=== PATIENT | male | born 1955 | race American Indian/Alaskan Native ===

== ENCOUNTER 2016-05-12 20:41 | Inpatient (IN) | payer MEDICAID ==
[2016-05-12] MEDS ORDERED: PROVENTIL IH ONE ×2 (20:57→21:22)
[2016-05-12 22:21] LABS: Basophils % (Auto) 1.1 % (0.0-1.8); Eosinophils % (Auto) 0.2 % (0.0-4.3); Hematocrit 35.2 % (35.5-45.6); Hemoglobin 11.1 gm/dl (11.8-15.2); Mean Corpuscular HGB Conc 32 % (32-34); Mean Corpuscular Volume 80 fl (84-94); Platelet Count 108 K/mm3 (140-440); Red Blood Count 4.41 M/mm3 (3.65-5.03); White Blood Count 5.3 K/mm3 (4.5-11.0)
[2016-05-12 22:22] LABS: INR 1.22 (0.87-1.13)
[2016-05-12 22:23] LABS: Mean Corpuscular Hemoglobin 25 pg (28-32); Partial Thromboplastin Time 23.9 Sec. (24.2-36.6); Red Cell Distribution Width 22.2 % (13.2-15.2)
[2016-05-12 22:48] LABS: Anion Gap 16 mmol/L; BUN/Creatinine Ratio 18.57; Blood Urea Nitrogen 13 mg/dL (9-20); Carbon Dioxide 25 mmol/L (22-30); Chloride 101.1 mmol/L (98-107); Glucose 137 mg/dL (75-100); Potassium 3.6 mmol/L (3.6-5.0); Sodium 138 mmol/L (137-145)
[2016-05-13] MEDS ORDERED: NITRO-BID 2% TP ONE (01:07)
[2016-05-13] MEDS ORDERED: TORADOL IV ONE (01:09)
--- NOTE | 2016-05-13 01:10 | Emergency Department Report ---
ED Chest Pain HPI - General Chief Complaint: Chest Pain Stated Complaint: CHEST PAIN Time Seen by Provider: 05/13/16 00:56 Source: patient, EMS Mode of arrival: Ambulatory Limitations: No Limitations - History of Present Illness Initial Comments: This is a 60-year-old gentleman with a one-day history of left-sided chest pain. He describes it as sharp in nature. He describes it being persistent. He States it keeps him up at night as well. Patient does report as well having cough over the last 2 days. He states that he has not had fevers he is not bringing up anything with a cough either. He does use albuterol treatments at home routinely. He reports that only helped modestly with his cough. Patient reports having CHF but I think he is confused and has CAD. He did have angiography done several years ago demonstrating 2 lesions that he reports were reviewed removed but did not require stenting. He denies any change of his pain with exertion. Somewhat worse however with cough. Denies any shortness of breath associated with this specifically. Patient is in [place] due to depression. He states that he is feeling that he is making progress there. He is frustrated that he is feeling sick now though. Patient was given aspirin by EMS. -: Gradual Severity scale (0 -10): 10 - Related Data Allergies Allergy/AdvReac Type Severity Reaction Status Date / Time No Known Allergies Allergy Verified 05/12/16 21:21 JUNG score - Jung Score Age > 65: (0) No Aspirin use within the Past 7 Days: (0) No 3 or more CAD Risk Factors: (0) No 2 or more Angina events in past 24 hrs: (1) Yes Known CAD with more than 50% Stenosis: (0) No Elevated Cardiac Markers: (0) No ST Deviation Greater than 0.5mm: (0) No JUNG Score: 1 ED Review of Systems ROS: Stated complaint: CHEST PAIN Other details as noted in HPI Comment: All other systems reviewed and negative Constitutional: denies: chills, fever Eyes: denies: eye pain, eye discharge, vision change ENT: denies: ear pain, throat pain Respiratory: cough. denies: shortness of breath, wheezing Cardiovascular: as per HPI, chest pain. denies: palpitations Endocrine: no symptoms reported Gastrointestinal: denies: abdominal pain, nausea, diarrhea Genitourinary: denies: urgency, dysuria Musculoskeletal: denies: back pain, joint swelling, arthralgia Skin: denies: rash, lesions Neurological: denies: headache, weakness, paresthesias Psychiatric: depression. denies: anxiety Hematological/Lymphatic: denies: easy bleeding, easy bruising ED Past Medical Hx - Past Medical History Previous Medical History?: Yes Additional medical history: CHF, COPD, ASTHMA, - Surgical History Past Surgical History?: Yes Additional Surgical History: Bilateral Hip Replacement - Social History Smoking Status: Never Smoker Substance Use Type: Alcohol ED Physical Exam - General Limitations: No Limitations General appearance: alert, in no apparent distress - Head Head exam: Present: atraumatic, normocephalic - Eye Eye exam: Present: normal appearance, EOMI. Absent: scleral icterus - ENT ENT exam: Present: normal exam, normal orophraynx, mucous membranes moist - Neck Neck exam: Present: normal inspection. Absent: tenderness, lymphadenopathy - Respiratory Respiratory exam: Present: wheezes (end expiratory.), decreased breath sounds. Absent: respiratory distress - Cardiovascular Cardiovascular Exam: Present: regular rate, normal rhythm. Absent: systolic murmur, diastolic murmur, rubs, gallop - GI/Abdominal GI/Abdominal exam: Present: soft, normal bowel sounds. Absent: tenderness, guarding - Rectal Rectal exam: Present: deferred - Extremities Exam Extremities exam: Present: normal inspection, other (equal distal pedal pulses bilat). Absent: pedal edema, calf tenderness - Back Exam Back exam: Present: normal inspection. Absent: tenderness, CVA tenderness (L) - Neurological Exam Neurological exam: Present: alert, oriented X3 - Psychiatric Psychiatric exam: Present: normal affect, normal mood - Skin Skin exam: Present: warm, dry, intact, normal color. Absent: rash ED Course Vital Signs 05/12/16 05/12/16 05/13/16 20:45 23:31 00:03 Temperature 97.6 F Pulse Rate 77 61 Respiratory 20 18 16 Rate Blood Pressure 139/97 135/88 [Right] O2 Sat by Pulse 98 99 99 Oximetry - Reevaluation(s) Reevaluation #1: 05/13/16 00:59 ECG at 2045 with normal sinus rhythm at 76 bpm with normal RI and QRS. Normal axis is noted. There is nonspecific ST changes noted in the anterior leads. No reciprocal is noted no old to compare to. Reevaluation #2: 05/13/16 01:15 Patient was initially sleeping when I enter the room. She was easily arousable. He stated his pain was 10 out of 10. I do have a hard time finding given his fitful sleep he appeared to be having. There is in my mind some concern/question for secondary gain with him coming from [place]. However he does give a history of prior coronary artery disease. He states that his pain today feels similar. He reports that he did have lesions that were identified on angiography last time he had similar pains. I feel inclined to proceed down the next same pathway again this time. His enzymes are negative. ECG is nonspecific. I do not suspect an acute process at this time but feel he would benefit from rule out as well. Secondarily there is more likely diagnosis in my mind that this is more likely chest wall pain due to his persistent coughing. Patient appears to have a bronchitis by examination. He has used albuterol at home as well as here with some mild subjective improvement. His oxygen levels are stable at this time. I did speak with the hospitalist Dr. Adames for admission. He was agreeable with this. No other concerning features are noted at this time. ED Medical Decision Making - Lab Data Result diagrams: 05/12/16 21:47 05/12/16 21:47 - Radiology Data interpreted by me: Normal cardiac silhouette. No infiltrate noted. Mild bronchial fullness noted bilaterally. Critical care attestation.: If time is entered above; I have spent that time in minutes in the direct care of this critically ill patient, excluding procedure time. ED Disposition Clinical Impression: Bronchitis Chest pain Qualifiers: Chest pain type: precordial chest pain Qualified Code(s): R07.2 - Precordial pain Depression Qualifiers: Depression Type: major depressive disorder Major depression recurrence: recurrent Active/Remission status: currently active Major depression episode severity: unspecified Qualified Code(s): F33.9 - Major depressive disorder, recurrent, unspecified Disposition: OP ADMITTED IP TO THIS HOSP Is pt being admited?: Yes Does the pt Need Aspirin: No Condition: Stable Instructions: Chest Pain (ED), Chronic Bronchitis (ED) Referrals: PRIMARY CARE, [Primary Care Provider] - 3-5 Days Time of Disposition: 01:11
[2016-05-13] MEDS ORDERED: TYLENOL PO PRN (01:57)
[2016-05-13] MEDS ORDERED: NITROSTAT SL PRN (01:57)
[2016-05-13] MEDS: NITRO-BID 2% TP SCH ×5 (02:48→17:58)
--- NOTE | 2016-05-13 02:49 | Admit Criteria Form ---
Admission Criteria Documentation: CHEST PAIN Clinical Indications for Admission to Inpatient Care (Place 'X' for any and all applicable criteria): Admission is indicated for chest pain and ANY ONE of the following(1)(2)(3)(4)(5 ): [ ]I. Angina with acute coronary syndrome (Also use Myocardial Infarction or Angina guideline) [ ]II. Hemodynamic instability [ ]III. Angina needing acute intervention as indicated by ALL of the following( 11)(12): [ ]a) Unstable angina is present as indicated by angina that is ANY ONE of the following: [ ]i) New onset [ ]ii) Nocturnal [ ]iii) Prolonged at rest [ ]iv) Progressive [ ]b) Angina warrants acute intervention as indicated by ANY ONE of the following: [ ]i) Recurrent angina (e.g, not responding as previously to treatment) [ ]ii) Angina at rest or with low-level activities despite initial medical therapy [ ]iii) New or presumably new ST-segment depression on ECG [ ]iv) Signs or symptoms of heart failure (eg, dyspnea, pulmonary edema) [ ]v) New or worsening mitral regurgitation [ ]vi) Hemodynamic instability [ ]vii) Dangerous arrhythmia (eg, sustained ventricular tachycardia) [ ]viii) History of percutaneous coronary intervention within 6 months [ ]ix) History of coronary artery bypass graft surgery [ ]x) JUNG risk score of 2 or greater[A] [ ]xi) History of Diabetes(14) [ ]xii) High-risk cardiac ischemia findings on noninvasive testing (e.g, echocardiogram, treadmill testing, nuclear scan) [ ]xiii) Chronic renal insufficiency (ie, estimated GFR less than 60 mL/min/1.732m) [ ]xiv) Left ventricular ejection fraction less than 40% [ ]IV. Evidence of ID (eg, cardiac biomarkers positive, ST-segment elevation on ECG) also use Myocardial Infarction Criteria Form. [ ]V. Pulmonary edema [ ]. Respiratory distress [ ]VII. Chest pain indicative of serious diagnosis other than coronary artery disease (eg, aortic dissection) [ ]VIII. Contraindications and/or Inappropriate clinical situations for Observational Care in patients with Chest Pain, when ANY ONE of the following is required: [ ]a) Patient with risk factor for pulmonary embolism, acute coronary syndrome and myocardial infarction (18) [ ]b) Patient with Pulmonary embolism require an average LOS of 4.3 days, therefore emergency department observation management is inappropriate 18,23 [ ]c) Painful condition/s in the elderly, have the highest rate of recidivism after emergency department observation management (10.8%) 20,21,22 [ ]d) Elevated cardiac biomarker requires intensive and exhaustive care (19) [ x]IX. General contraindications and/or Inappropriate clinical situations for Observational Care in patients with Chest Pain, when ANY ONE of the following is required: [x ]a) Prediction of prolongation of LOS based on ANY ONE of the following may be considered as a contraindication for observational care 2, 3, 4, 5, 6, 7, 8, 9, 10, 11 [ ]i) Age > 65 yrs. [ ]ii) Patient arriving by ambulance [ ]iii) Patient with high acuity [ ]iv) Patient requiring vital sign monitoring [x ]v) Patient on IV medication [ ]b) Systolic blood pressures 180mmHg 3,12 [ ]c) Patient with altered mental status including delirium and other alteration of consciousness, (3) [ ]d) Patient whose discharge disposition will be to a detention home or rehabilitation home should not be managed in Emergency Department Observation Unit. CMS rule requires 3 days hospital stay before such placement. 3,13 [ ]e) Patient with failure to thrive due to broad array of etiologies 3,16,17 [ ]f) Inability to ambulate 3,14 Extended stay beyond goal length of stay may be needed for (1)(28): [ ]a) Specific condition diagnosed after evaluation (eg, pulmonary embolism, aortic dissection) [ ]b) Unstable angina [ ]c) Continued suspicion of acute coronary syndrome with inability to complete needed cardiac evaluation (eg, patient clinically unable to undergo stress testing) [ ]d) Myocardial infarction (Contents from ANGINA and CHEST PAIN clinical indications for admission to inpatient care have been integrated in this form) The original [employer] content created by [employer] has been revised. The portions of the content which have been revised are identified through the use of italic text or in bold, and [facility] [employer] has neither reviewed nor approved the modified material. All other unmodified content is copyright [facility]. Please see references footnoted in the original [facility] edition 2016 Admission Criteria Met: Yes
[2016-05-13] MEDS: HEPARIN SUB-Q SCH ×3 (02:53→22:49)
--- NOTE | 2016-05-13 03:47 | History and Physical Report ---
CHIEF COMPLAINT: Chest pain. HISTORY OF PRESENT ILLNESS: The patient is a 60-year-old male brought from [facility] after he presented with left-sided chest pain, which he described as sharp in consistency, radiating to the neck, left upper arm. There was a history of associated shortness of breath, diaphoresis, nausea, but no vomiting. Also, the patient complained about cough. The patient denied history of fever or chills. PAST MEDICAL HISTORY: Pertinent for coronary artery disease, depression, COPD, as well as asthma. PAST SURGICAL HISTORY: Pertinent for bilateral hip replacement. FAMILY HISTORY: Noncontributory. SOCIAL HISTORY: The patient lives at the [facility]. He does not smoke. He drinks alcohol occasionally. He does not use illicit drugs. MEDICATIONS: The patient's medications are not known at this time. ALLERGIES: There are no known drug allergies. REVIEW OF SYSTEMS: CONSTITUTIONAL: There are no fever, no chills. Diaphoresis present. HEENT: Negative for headache or sore throat. CARDIOVASCULAR SYSTEM: There is chest pain, but no orthopnea. RESPIRATORY SYSTEM: There is shortness of breath or cough. GASTROINTESTINAL SYSTEM: He has nausea, but no vomiting, no abdominal pain, diarrhea or constipation. NEUROLOGICAL SYSTEM: There is no numbness, no dizziness. No altered mental status. MUSCULOSKELETAL SYSTEM: There is no joint pain or swelling. DERMATOLOGICAL SYSTEM: There is no skin rash or itching. GENITOURINARY SYSTEM: There is no dysuria, hematuria or flank pain. Rest of system review is normal. PHYSICAL EXAMINATION: GENERAL: At the time of exam, the patient was found to be alert, oriented x 3, and not in acute distress. VITAL SIGNS: Shows temperature of 97.6 degrees Fahrenheit, pulse of 68, respiration 16, blood pressure 135/88, O2 sat of 98% of oxygen. HEENT: Shows pupils to be equal, round, and reactive to light and accommodation. Extraocular muscles are intact. NECK: Supple with no JVD or carotid bruit. CARDIOVASCULAR SYSTEM: Showed normal first and second heart sounds with no gallops or rubs. RESPIRATORY SYSTEM: Show good air entry on both sides of the lungs with no abnormal breath sounds. GASTROINTESTINAL SYSTEM: Show abdomen to be full, soft, nontender with no organomegaly or rigidity. NEUROLOGIC EXAMINATION: Show no focal deficit. MUSCULOSKELETAL SYSTEM: Show no joint swelling or tenderness. DERMATOLOGICAL system: Show no skin rash. GENITOURINARY SYSTEM: Showing no costovertebral angle tenderness. PERTINENT LABORATORY AND IMAGING STUDIES: The patient has CBC done with low hemoglobin of 11.1, low hematocrit of 35.2, and low MCV of 8, platelet count is also low with a value of 108. The patient's coagulation study shows elevated PT of 15.3 with slightly elevated INR of 1.22. The patient's chemistry was unremarkable. IMAGING STUDIES: The patient had a chest x-ray done with no report from the Emergency Room about any abnormality on x-ray. DIAGNOSIS: Chest pain. PLAN: The patient will be placed on chest pain pathway on telemetry. We will have cardiac enzymes, troponin, total CK, and CK-MB checked q 6 hours x 2 more levels. The patient will be n.p.o. for Lexiscan stress test in the morning and will be on nitro paste 1 inch to anterior chest wall q 6 hours. The patient will also be on IV morphine 2 mg every 3 hours as needed for pain and IV Zofran 4 mg every 6 hours for nausea and vomiting. The patient will be placed on Tylenol 650 mg by mouth every 4 hours for headache and fever, and will be on aspirin 325 mg by mouth daily. The patient will be on oxygen by nasal cannula at 2 liter per minute and would also be placed on sublingual nitroglycerin for breakthrough chest pain. Further management of patient's presentation will be dependent on the result of the stress test. JOB# [id number] OCN/NTS
--- NOTE | 2016-05-13 08:00 | XRay Report ---
PA and lateral chest: SOB. This is mild dextroscoliosis of the upper thoracic spine. There is mild tortuosity of the aortic arch. The heart is normal in size. The lungs are clear. No bone abnormalities. No prior study for comparison. Impression: No acute findings.
[2016-05-13] MEDS ORDERED: LEXISCAN IV ONE (09:47)
[2016-05-13] MEDS ORDERED: PROVENTIL IH ONE (10:18)
[2016-05-13] MEDS: ASPIRIN PO SCH (11:45)
[2016-05-13] MEDS: MORPHINE IV PRN ×2 (11:46→20:25)
[2016-05-13] MEDS: ZOFRAN IV PRN ×2 (11:59→20:26)
[2016-05-13 12:33] LABS: Creatine Kinase MB 2.1 ng/mL (0.0-4.0)
[2016-05-13 12:37] LABS: Creatine Kinase 67 units/L (55-170)
--- NOTE | 2016-05-13 14:36 | Progress Note ---
Assessment and Plan Assessment and plan: 1. Acute COPD exacerbation. Patient will be placed on the COPD pathway. We will start breathing treatments/nebulizer and IV steroids. Patient will also be started on IV antibiotics. 2. Acute bronchitis. As above. 3. Chest pain. Patient will undergo stress thallium when more stable. Etiology likely secondary to #2. 4. Coronary artery disease. Stable. History Interval history: 60-year-old male who presented through the emerge department with complaints of reproducible chest pain and cough. Patient unable to undergo stress thallium evaluation secondary to wheezing. Hospitalist Physical - Constitutional Vitals: Temp Pulse Resp BP Pulse Ox 98.1 F 66 18 124/81 97 05/13/16 08:00 05/13/16 08:00 05/13/16 08:00 05/13/16 08:00 05/13/16 08:38 General appearance: Present: no acute distress, well-nourished - EENT Eyes: Present: PERRL, EOM intact ENT: hearing intact, clear oral mucosa, dentition normal - Neck Neck: Present: supple, normal ROM - Respiratory Respiratory effort: normal Respiratory: bilateral: diminished, rhonchi, wheezing - Cardiovascular Rhythm: regular Heart Sounds: Present: S1 & S2. Absent: gallop, rub - Extremities Extremities: no ischemia, No edema, Full ROM - Abdominal General gastrointestinal: soft, non-tender, non-distended, normal bowel sounds - Integumentary Integumentary: Present: clear, warm, dry - Neurologic Neurologic: CNII-XII intact, moves all extremities Results - Labs CBC & Chem 7: 05/12/16 21:47 05/12/16 21:47 Labs: Laboratory Last Values WBC 5.3 K/mm3 (4.5-11.0) 05/12/16 21:47 RBC 4.41 M/mm3 (3.65-5.03) 05/12/16 21:47 Hgb 11.1 gm/dl (11.8-15.2) L 05/12/16 21:47 Hct 35.2 % (35.5-45.6) L 05/12/16 21:47 MCV 80 fl (84-94) L 05/12/16 21:47 MCH 25 pg (28-32) L 05/12/16 21:47 MCHC 32 % (32-34) 05/12/16 21:47 RDW 22.2 % (13.2-15.2) H 05/12/16 21:47 Plt Count 108 K/mm3 (140-440) L 05/12/16 21:47 Lymph % (Auto) 16.4 % (13.4-35.0) 05/12/16 21:47 [place] % (Auto) 10.1 % (0.0-7.3) H 05/12/16 21:47 Eos % (Auto) 0.2 % (0.0-4.3) 05/12/16 21:47 Baso % (Auto) 1.1 % (0.0-1.8) 05/12/16 21:47 Lymph # 0.9 K/mm3 (1.2-5.4) L 05/12/16 21:47 [place] # 0.5 K/mm3 (0.0-0.8) 05/12/16 21:47 Eos # 0.0 K/mm3 (0.0-0.4) 05/12/16 21:47 Baso # 0.1 K/mm3 (0.0-0.1) 05/12/16 21:47 Seg Neutrophils % 72.2 % (40.0-70.0) H 05/12/16 21:47 Seg Neutrophils # 3.8 K/mm3 (1.8-7.7) 05/12/16 21:47 PT 15.3 Sec. (12.2-14.9) H 05/12/16 21:47 INR 1.22 (0.87-1.13) H 05/12/16 21:47 APTT 23.9 Sec. (24.2-36.6) L 05/12/16 21:47 VBG pH 7.383 (7.320-7.420) 05/12/16 21:47 Sodium 138 mmol/L (137-145) 05/12/16 21:47 Potassium 3.6 mmol/L (3.6-5.0) 05/12/16 21:47 Chloride 101.1 mmol/L (98-107) 05/12/16 21:47 Carbon Dioxide 25 mmol/L (22-30) 05/12/16 21:47 Anion Gap 16 mmol/L 05/12/16 21:47 BUN 13 mg/dL (9-20) 05/12/16 21:47 Creatinine 0.7 mg/dL (0.8-1.5) L 05/12/16 21:47 Estimated GFR > 60 ml/min 05/12/16 21:47 BUN/Creatinine Ratio 18.57 % 05/12/16 21:47 Glucose 137 mg/dL (75-100) H 05/12/16 21:47 Calcium 9.0 mg/dL (8.4-10.2) 05/12/16 21:47 Total Creatine Kinase 67 units/L (55-170) 05/13/16 11:55 CK-MB (CK-2) 2.1 ng/mL (0.0-4.0) 05/13/16 11:55 CK-MB (CK-2) Rel Index 3.1 (0-4) 05/13/16 11:55 Troponin T < 0.010 ng/mL (0.00-0.029) 05/13/16 11:55 NT-Pro-B Natriuret Pep 27.95 pg/mL (0-900) 05/12/16 21:47
[2016-05-13 18:59] LABS: Creatine Kinase MB 2.1 ng/mL (0.0-4.0)
[2016-05-13 19:03] LABS: Creatine Kinase 63 units/L (55-170)
[2016-05-13] MEDS: DUONEB 0.5 MG-3 MG/3 ML SOLN IH SCH (20:30)
[2016-05-14] MEDS: DUONEB 0.5 MG-3 MG/3 ML SOLN IH SCH ×4 (02:12→19:59)
[2016-05-14] MEDS: HEPARIN SUB-Q SCH ×4 (05:24→23:02)
[2016-05-14] MEDS: NITRO-BID 2% TP SCH ×4 (05:25→17:24)
[2016-05-14] MEDS: MORPHINE IV PRN ×2 (09:23→17:25)
[2016-05-14] MEDS: ASPIRIN PO SCH (09:23)
[2016-05-14] MEDS: ZITHROMAX 500 MG in NACL 0.9% 250ML 250 ML IV SCH ×2 (10:17→11:20)
--- NOTE | 2016-05-14 10:31 | Progress Note ---
Assessment and Plan Assessment and plan: 1. Acute COPD exacerbation. Patient will be placed on the COPD pathway. We will start breathing treatments/nebulizer and IV steroids. Patient will also be started on IV antibiotics. Consider Pulmonary consultation. 2. Acute bronchitis. As above. 3. Chest pain. Patient will undergo stress thallium today. Etiology likely secondary to #2. 4. Coronary artery disease. Stable. History Interval history: 60-year-old male who presented through the emerge department with complaints of reproducible chest pain and cough. Patient unable to undergo stress thallium evaluation secondary to wheezing. Patient still complains of some dyspnea with exertion. Hospitalist Physical - Constitutional Vitals: Temp Pulse Resp BP Pulse Ox 97.5 F L 62 18 127/79 97 05/14/16 08:20 05/14/16 09:24 05/14/16 08:24 05/14/16 09:24 05/14/16 08:17 General appearance: Present: no acute distress, well-nourished - EENT Eyes: Present: PERRL, EOM intact ENT: hearing intact, clear oral mucosa, dentition normal - Neck Neck: Present: supple, normal ROM - Respiratory Respiratory effort: normal Respiratory: bilateral: diminished - Cardiovascular Rhythm: regular Heart Sounds: Present: S1 & S2. Absent: gallop, rub - Extremities Extremities: no ischemia, No edema, Full ROM - Abdominal General gastrointestinal: soft, non-tender, non-distended, normal bowel sounds - Integumentary Integumentary: Present: clear, warm, dry - Neurologic Neurologic: CNII-XII intact, moves all extremities Results - Labs CBC & Chem 7: 05/12/16 21:47 05/12/16 21:47 Labs: Laboratory Last Values WBC 5.3 K/mm3 (4.5-11.0) 05/12/16 21:47 RBC 4.41 M/mm3 (3.65-5.03) 05/12/16 21:47 Hgb 11.1 gm/dl (11.8-15.2) L 05/12/16 21:47 Hct 35.2 % (35.5-45.6) L 05/12/16 21:47 MCV 80 fl (84-94) L 05/12/16 21:47 MCH 25 pg (28-32) L 05/12/16 21:47 MCHC 32 % (32-34) 05/12/16 21:47 RDW 22.2 % (13.2-15.2) H 05/12/16 21:47 Plt Count 108 K/mm3 (140-440) L 05/12/16 21:47 Lymph % (Auto) 16.4 % (13.4-35.0) 05/12/16 21:47 [place] % (Auto) 10.1 % (0.0-7.3) H 05/12/16 21:47 Eos % (Auto) 0.2 % (0.0-4.3) 05/12/16 21:47 Baso % (Auto) 1.1 % (0.0-1.8) 05/12/16 21:47 Lymph # 0.9 K/mm3 (1.2-5.4) L 05/12/16 21:47 [place] # 0.5 K/mm3 (0.0-0.8) 05/12/16 21:47 Eos # 0.0 K/mm3 (0.0-0.4) 05/12/16 21:47 Baso # 0.1 K/mm3 (0.0-0.1) 05/12/16 21:47 Seg Neutrophils % 72.2 % (40.0-70.0) H 05/12/16 21:47 Seg Neutrophils # 3.8 K/mm3 (1.8-7.7) 05/12/16 21:47 PT 15.3 Sec. (12.2-14.9) H 05/12/16 21:47 INR 1.22 (0.87-1.13) H 05/12/16 21:47 APTT 23.9 Sec. (24.2-36.6) L 05/12/16 21:47 VBG pH 7.383 (7.320-7.420) 05/12/16 21:47 Sodium 138 mmol/L (137-145) 05/12/16 21:47 Potassium 3.6 mmol/L (3.6-5.0) 05/12/16 21:47 Chloride 101.1 mmol/L (98-107) 05/12/16 21:47 Carbon Dioxide 25 mmol/L (22-30) 05/12/16 21:47 Anion Gap 16 mmol/L 05/12/16 21:47 BUN 13 mg/dL (9-20) 05/12/16 21:47 Creatinine 0.7 mg/dL (0.8-1.5) L 05/12/16 21:47 Estimated GFR > 60 ml/min 05/12/16 21:47 BUN/Creatinine Ratio 18.57 % 05/12/16 21:47 Glucose 137 mg/dL (75-100) H 05/12/16 21:47 POC Glucose 100 (70-105) 05/13/16 16:48 Calcium 9.0 mg/dL (8.4-10.2) 05/12/16 21:47 Total Creatine Kinase 63 units/L (55-170) 05/13/16 18:25 CK-MB (CK-2) 2.1 ng/mL (0.0-4.0) 05/13/16 18:25 CK-MB (CK-2) Rel Index 3.3 (0-4) 05/13/16 18:25 Troponin T < 0.010 ng/mL (0.00-0.029) 05/13/16 18:25 NT-Pro-B Natriuret Pep 27.95 pg/mL (0-900) 05/12/16 21:47
[2016-05-14] MEDS: ROCEPHIN/NS 1 GM/50 ML 1 GM/50 ML BAG IV SCH (11:18)
--- NOTE | 2016-05-14 12:59 | Event Note ---
Date: 05/14/16 Patient was referred for a stress test. He is very dyspneic and marked wheezing on auscultation. He reports a long history of COPD. ECG: NSR, normal ECG. Not a candidate for stress testing at this time. Stress is cancelled and patient returned to his floor. You may refer back for stress test after his pulmonary status is better optimized.
[2016-05-14] MEDS: NORCO 5/325 PO PRN (23:02)
[2016-05-15] MEDS: DUONEB 0.5 MG-3 MG/3 ML SOLN IH SCH ×4 (02:12→19:52)
[2016-05-15] MEDS: HEPARIN SUB-Q SCH ×2 (06:30→15:52)
[2016-05-15] MEDS: NITRO-BID 2% TP SCH ×2 (06:55→16:06)
[2016-05-15] MEDS: NORCO 5/325 PO PRN ×2 (09:04→21:55)
[2016-05-15] MEDS: PROVENTIL IH PRN (11:09)
[2016-05-15] MEDS: ROCEPHIN/NS 1 GM/50 ML 1 GM/50 ML BAG IV SCH (11:50)
[2016-05-15] MEDS: ASPIRIN PO SCH (11:52)
[2016-05-15] MEDS: MORPHINE IV PRN ×2 (11:53→20:58)
--- NOTE | 2016-05-15 13:07 | Progress Note ---
Assessment and Plan Assessment and plan: 1. Acute COPD exacerbation. Continue IV antibiotics. Increase IV steroids to 80 mg 3 times a day. Pulmonary consultation pending. 2. Acute bronchitis. As above. 3. Chest pain. Patient will undergo stress thallium when COPD exacerbation resolved. 4. Coronary artery disease. Stable. History Interval history: 60-year-old male who presented through the emerge department with complaints of reproducible chest pain and cough. Patient unable to undergo stress thallium evaluation secondary to wheezing. Patient still complains of some dyspnea with exertion. Hospitalist Physical - Constitutional Vitals: Temp Pulse Resp BP Pulse Ox 97.8 F 72 20 119/86 95 05/15/16 08:20 05/15/16 11:20 05/15/16 11:20 05/15/16 08:20 05/15/16 08:20 General appearance: Present: no acute distress, well-nourished - EENT Eyes: Present: PERRL, EOM intact ENT: hearing intact, clear oral mucosa, dentition normal - Neck Neck: Present: supple, normal ROM - Respiratory Respiratory effort: normal Respiratory: bilateral: CTA - Cardiovascular Rhythm: regular Heart Sounds: Present: S1 & S2. Absent: gallop, rub - Extremities Extremities: no ischemia, No edema, Full ROM - Abdominal General gastrointestinal: soft, non-tender, non-distended, normal bowel sounds - Integumentary Integumentary: Present: clear, warm, dry - Neurologic Neurologic: CNII-XII intact, moves all extremities Results - Labs CBC & Chem 7: 05/12/16 21:47 05/12/16 21:47 Labs: Laboratory Last Values WBC 5.3 K/mm3 (4.5-11.0) 05/12/16 21:47 RBC 4.41 M/mm3 (3.65-5.03) 05/12/16 21:47 Hgb 11.1 gm/dl (11.8-15.2) L 05/12/16 21:47 Hct 35.2 % (35.5-45.6) L 05/12/16 21:47 MCV 80 fl (84-94) L 05/12/16 21:47 MCH 25 pg (28-32) L 05/12/16 21:47 MCHC 32 % (32-34) 05/12/16 21:47 RDW 22.2 % (13.2-15.2) H 05/12/16 21:47 Plt Count 108 K/mm3 (140-440) L 05/12/16 21:47 Lymph % (Auto) 16.4 % (13.4-35.0) 05/12/16 21:47 [place] % (Auto) 10.1 % (0.0-7.3) H 05/12/16 21:47 Eos % (Auto) 0.2 % (0.0-4.3) 05/12/16 21:47 Baso % (Auto) 1.1 % (0.0-1.8) 05/12/16 21:47 Lymph # 0.9 K/mm3 (1.2-5.4) L 05/12/16 21:47 [place] # 0.5 K/mm3 (0.0-0.8) 05/12/16 21:47 Eos # 0.0 K/mm3 (0.0-0.4) 05/12/16 21:47 Baso # 0.1 K/mm3 (0.0-0.1) 05/12/16 21:47 Seg Neutrophils % 72.2 % (40.0-70.0) H 05/12/16 21:47 Seg Neutrophils # 3.8 K/mm3 (1.8-7.7) 05/12/16 21:47 PT 15.3 Sec. (12.2-14.9) H 05/12/16 21:47 INR 1.22 (0.87-1.13) H 05/12/16 21:47 APTT 23.9 Sec. (24.2-36.6) L 05/12/16 21:47 VBG pH 7.383 (7.320-7.420) 05/12/16 21:47 Sodium 138 mmol/L (137-145) 05/12/16 21:47 Potassium 3.6 mmol/L (3.6-5.0) 05/12/16 21:47 Chloride 101.1 mmol/L (98-107) 05/12/16 21:47 Carbon Dioxide 25 mmol/L (22-30) 05/12/16 21:47 Anion Gap 16 mmol/L 05/12/16 21:47 BUN 13 mg/dL (9-20) 05/12/16 21:47 Creatinine 0.7 mg/dL (0.8-1.5) L 05/12/16 21:47 Estimated GFR > 60 ml/min 05/12/16 21:47 BUN/Creatinine Ratio 18.57 % 05/12/16 21:47 Glucose 137 mg/dL (75-100) H 05/12/16 21:47 POC Glucose 184 (70-105) H 05/14/16 06:12 Calcium 9.0 mg/dL (8.4-10.2) 05/12/16 21:47 Total Creatine Kinase 63 units/L (55-170) 05/13/16 18:25 CK-MB (CK-2) 2.1 ng/mL (0.0-4.0) 05/13/16 18:25 CK-MB (CK-2) Rel Index 3.3 (0-4) 05/13/16 18:25 Troponin T < 0.010 ng/mL (0.00-0.029) 05/13/16 18:25 NT-Pro-B Natriuret Pep 27.95 pg/mL (0-900) 05/12/16 21:47
--- NOTE | 2016-05-15 14:38 | Consultation ---
History of Present Illness Consult date: 05/15/16 Requesting physician: BETHANIE VALLE Reason for consult: COPD History of present illness: 60 yo admitted from [place] with increased SOB, wheezing, dry cough, some fevers/chills, and L sided sharp chest pain. No sputum, hemoptysis, smoking. States he has GERD. States he has allergic rhinitis. States he has been "noncompliant" with his respiratory meds due to depression. Active Medications Acetaminophen (Tylenol) 650 mg PO Q4H PRN PRN Reason: For Pain/Fever/Headache Acetaminophen/Hydrocodone Bitart ([place] 5/325) 2 each PO Q4H PRN PRN Reason: Pain, Moderate (4-6) Albuterol (Proventil) 2.5 mg IH Q4HRT PRN PRN Reason: Shortness Of Breath Last Admin: 05/15/16 11:09 Dose: 2.5 mg Albuterol/Ipratropium (Duoneb 0.5 Mg-3 Mg/3 Ml Soln) [address] [facility] Last Admin: 05/15/16 13:56 Dose: 1 ampul Arformoterol Tartrate (Brovana Nebu) [address] [facility] Aspirin (Aspirin) [address] [facility] Last Admin: 05/15/16 11:52 Dose: 325 mg Budesonide (Pulmicort) 0.[address] [facility] Guaifenesin (Mucinex Er) [address] [facility] Heparin Sodium (Porcine) (Heparin) 5,000 unit SUB-Q Q8HR [facility] Last Admin: 05/15/16 06:30 Dose: Not Given Azithromycin 500 mg/ Sodium (Chloride) 250 mls @ 250 mls/hr IV Q24HR [facility] Last Admin: 05/14/16 10:17 Dose: 250 mls/hr Ceftriaxone Sodium (Rocephin/Ns 1 Gm/50 Ml) 1 gm in 50 mls @ 100 mls/hr IV Q24HR [facility] PRN Reason: Protocol Last Admin: 05/15/16 11:50 Dose: 100 mls/hr Loratadine (Claritin) [address] [facility] Methylprednisolone Sodium Succinate (Solu-Medrol) [address] [facility] Montelukast Sodium (Singulair) [address] [facility] Morphine Sulfate (Morphine) 2 mg IV Q3H PRN PRN Reason: Pain, Moderate (4-6) Last Admin: 05/15/16 11:53 Dose: 2 mg Nitroglycerin (Nitrostat) 0.4 mg SL Q5M PRN PRN Reason: Chest Pain Nitroglycerin (Nitro-Bid 2%) 1 inch TP QIDNTG SHERYL PRN Reason: Protocol Last Admin: 05/15/16 06:55 Dose: Not Given Ondansetron HCl (Zofran) 4 mg IV Q6H PRN PRN Reason: Nausea And Vomiting Last Admin: 05/13/16 20:26 Dose: 4 mg Pantoprazole Sodium (Protonix) [address] [facility] Past History Past Medical History: other (COPD, asthma, depression) Social history: full code. denies: smoking, alcohol abuse, prescription drug abuse, IV drug use Family history: other (No pulm issues reported) Medications and Allergies Allergies Allergy/AdvReac Type Severity Reaction Status Date / Time No Known Allergies Allergy Verified 05/12/16 21:21 Home Medications Medication Instructions Recorded Confirmed Last Taken Type No Known Home Medications [No 05/13/16 05/13/16 Unknown History Reported Home Medications] Active Meds: Active Medications Acetaminophen (Tylenol) 650 mg PO Q4H PRN PRN Reason: For Pain/Fever/Headache Acetaminophen/Hydrocodone Bitart ([place] 5/325) 2 each PO Q4H PRN PRN Reason: Pain, Moderate (4-6) Albuterol (Proventil) 2.5 mg IH Q4HRT PRN PRN Reason: Shortness Of Breath Last Admin: 05/15/16 11:09 Dose: 2.5 mg Albuterol/Ipratropium (Duoneb 0.5 Mg-3 Mg/3 Ml Soln) [address] [facility] Last Admin: 05/15/16 13:56 Dose: 1 ampul Arformoterol Tartrate (Brovana Nebu) [address] [facility] Aspirin (Aspirin) [address] [facility] Last Admin: 05/15/16 11:52 Dose: 325 mg Budesonide (Pulmicort) 0.[address] [facility] Guaifenesin (Mucinex Er) [address] [facility] Heparin Sodium (Porcine) (Heparin) 5,000 unit SUB-Q Q8HR [facility] Last Admin: 05/15/16 06:30 Dose: Not Given Azithromycin 500 mg/ Sodium (Chloride) 250 mls @ 250 mls/hr IV Q24HR [facility] Last Admin: 05/14/16 10:17 Dose: 250 mls/hr Ceftriaxone Sodium (Rocephin/Ns 1 Gm/50 Ml) 1 gm in 50 mls @ 100 mls/hr IV Q24HR [facility] PRN Reason: Protocol Last Admin: 05/15/16 11:50 Dose: 100 mls/hr Loratadine (Claritin) [address] [facility] Methylprednisolone Sodium Succinate (Solu-Medrol) [address] [facility] Montelukast Sodium (Singulair) [address] [facility] Morphine Sulfate (Morphine) 2 mg IV Q3H PRN PRN Reason: Pain, Moderate (4-6) Last Admin: 05/15/16 11:53 Dose: 2 mg Nitroglycerin (Nitrostat) 0.4 mg SL Q5M PRN PRN Reason: Chest Pain Nitroglycerin (Nitro-Bid 2%) [address] [facility] PRN Reason: Protocol Last Admin: 05/15/16 06:55 Dose: Not Given Ondansetron HCl (Zofran) 4 mg IV Q6H PRN PRN Reason: Nausea And Vomiting Last Admin: 05/13/16 20:26 Dose: 4 mg Pantoprazole Sodium (Protonix) [address] [facility] Review of Systems All systems: negative Physical Examination Vital signs: Vital Signs Temp Pulse Resp BP Pulse Ox 97.6 F 77 20 139/97 98 05/12/16 20:45 05/12/16 20:45 05/12/16 20:45 05/12/16 20:45 05/12/16 20:45 Vital Signs - 24 hr 05/14/16 05/14/16 05/14/16 14:56 16:50 17:24 Temperature 97.4 F L Pulse Rate 66 63 Pulse Rate [ Anterior Bilateral Throughout] Pulse Rate [ Apical] Pulse Rate [ Bilateral] Pulse Rate [ 82 Right Radial] Respiratory 20 Rate Respiratory Rate [Anterior Bilateral Throughout] Respiratory Rate [Bilateral ] Blood Pressure 117/70 140/79 Blood Pressure 111/73 [Right Arm] O2 Sat by Pulse 96 Oximetry 0405/14/16 05/14/16 20:01 20:10 20:35 Temperature Pulse Rate 63 Pulse Rate [ Anterior Bilateral Throughout] Pulse Rate [ Apical] Pulse Rate [ 63 73 Bilateral] Pulse Rate [ Right Radial] Respiratory Rate Respiratory Rate [Anterior Bilateral Throughout] Respiratory 20 20 Rate [Bilateral ] Blood Pressure Blood Pressure [Right Arm] O2 Sat by Pulse Oximetry 05/14/16 05/14/16 05/15/16 21:27 23:02 01:08 Temperature 97.4 F L 97.9 F Pulse Rate Pulse Rate [ Anterior Bilateral Throughout] Pulse Rate [ 70 75 Apical] Pulse Rate [ Bilateral] Pulse Rate [ Right Radial] Respiratory 20 20 18 Rate Respiratory Rate [Anterior Bilateral Throughout] Respiratory Rate [Bilateral ] Blood Pressure Blood Pressure 127/80 113/59 [Right Arm] O2 Sat by Pulse 100 99 Oximetry 05/15/16 05/15/16 05/15/16 02:14 02:26 05:59 Temperature 98.1 F Pulse Rate Pulse Rate [ Anterior Bilateral Throughout] Pulse Rate [ 80 Apical] Pulse Rate [ 85 82 Bilateral] Pulse Rate [ Right Radial] Respiratory 20 Rate Respiratory Rate [Anterior Bilateral Throughout] Respiratory 20 20 Rate [Bilateral ] Blood Pressure Blood Pressure 102/61 [Right Arm] O2 Sat by Pulse 97 Oximetry 05/15/16 05/15/16 05/15/16 07:28 07:38 08:20 Temperature 97.8 F Pulse Rate Pulse Rate [ 71 88 Anterior Bilateral Throughout] Pulse Rate [ Apical] Pulse Rate [ Bilateral] Pulse Rate [ 86 Right Radial] Respiratory 86 H Rate Respiratory 20 20 Rate [Anterior Bilateral Throughout] Respiratory Rate [Bilateral ] Blood Pressure Blood Pressure 119/86 [Right Arm] O2 Sat by Pulse 95 Oximetry 05/15/16 05/15/16 11:09 11:20 Temperature Pulse Rate Pulse Rate [ 81 72 Anterior Bilateral Throughout] Pulse Rate [ Apical] Pulse Rate [ Bilateral] Pulse Rate [ Right Radial] Respiratory Rate Respiratory 20 20 Rate [Anterior Bilateral Throughout] Respiratory Rate [Bilateral ] Blood Pressure Blood Pressure [Right Arm] O2 Sat by Pulse Oximetry General appearance: no acute distress, alert Eyes: non-icteric ENT: oropharynx moist Neck: supple Effort: normal Ascultation: Bilateral: wheezes Cardiovascular: regular rate and rhythm (no mrg) Gastrointestinal: normoactive bowel sounds, soft, non-tender, non-distended Integumentary: normal Extremities: no cyanosis, no edema, pink and warm Musculoskeletal: no deformities normal mental status, non-focal exam, pupils equal and round, CN II-XII normal mood appropriate, affect normal Results - Laboratory Findings CBC and BMP: 05/12/16 21:47 05/12/16 21:47 PT/INR, D-dimer PT 15.3 Sec. (12.2-14.9) H 05/12/16 21:47 INR 1.22 (0.87-1.13) H 05/12/16 21:47 Abnormal lab findings: Abnormal Labs 05/14/16 06:12 POC Glucose 184 H - Diagnostic Findings Chest x-ray: report reviewed, image reviewed (clear) Assessment and Plan Imp: 1. Acute bronchitis 2. COPD exac. 3. Asthma exac. 4. Acute respiratory distress 5. GERD 6. Allergic rhinitis Rec: 1. Solumedrol/ABX 2. Pulmicort/Brovana 3. Singulair/Claritin 4. PPI 5. Hold stress test until SOB/wheezing better 6. Outpatient PFTs 7. Monitor clinically Plan of care reviewed with patient, he understands/agrees Thanks for the consult.
[2016-05-15] MEDS: CLARITIN PO SCH (15:52)
[2016-05-15] MEDS: PROTONIX PO SCH (15:52)
[2016-05-15] MEDS: BROVANA NEBU IH SCH (19:52)
[2016-05-15] MEDS: PULMICORT IH SCH (19:52)
[2016-05-15] MEDS: SINGULAIR PO SCH (21:39)
[2016-05-16] MEDS: NORCO 5/325 PO PRN ×3 (01:55→17:17)
[2016-05-16] MEDS: DUONEB 0.5 MG-3 MG/3 ML SOLN IH SCH ×5 (02:04→22:01)
[2016-05-16] MEDS: MORPHINE IV PRN (03:49)
[2016-05-16] MEDS: PULMICORT IH SCH ×3 (07:48→22:00)
[2016-05-16] MEDS: BROVANA NEBU IH SCH ×3 (07:48→22:00)
[2016-05-16] MEDS: ROCEPHIN/NS 1 GM/50 ML 1 GM/50 ML BAG IV SCH (09:00)
[2016-05-16] MEDS: NITRO-BID 2% TP SCH ×4 (09:00→18:25)
[2016-05-16] MEDS: MUCINEX ER PO SCH (09:25)
[2016-05-16] MEDS: CLARITIN PO SCH (09:26)
[2016-05-16] MEDS: ASPIRIN PO SCH (09:26)
[2016-05-16] MEDS: PROTONIX PO SCH (09:26)
[2016-05-16] MEDS: ZITHROMAX 500 MG in NACL 0.9% 250ML 250 ML IV SCH (09:27)
--- NOTE | 2016-05-16 12:09 | Progress Note ---
Assessment and Plan Assessment and plan: 1. Acute COPD exacerbation. Continue IV antibiotics, Pulmicort and Brovana Continue IV steroids. Pulmonary . 2. Acute bronchitis. Continue Mucinex and add Tessalon Perles. 3. Chest pain. Patient will undergo stress thallium when COPD exacerbation resolved. 4. Coronary artery disease. Stable. History Interval history: 60-year-old male who presented through the emerge department with complaints of reproducible chest pain and cough. Patient unable to undergo stress thallium evaluation secondary to wheezing. Patient still complains of some dyspnea with exertion and complains of persistent cough. Hospitalist Physical - Constitutional Vitals: Temp Pulse Resp BP Pulse Ox 97 F L 60 20 134/78 97 05/16/16 07:00 05/16/16 07:58 05/16/16 07:58 05/16/16 07:00 05/16/16 07:00 General appearance: Present: no acute distress, well-nourished - EENT Eyes: Present: PERRL, EOM intact ENT: hearing intact, clear oral mucosa, dentition normal - Neck Neck: Present: supple, normal ROM - Respiratory Respiratory effort: normal Respiratory: bilateral: diminished, wheezing - Cardiovascular Rhythm: regular Heart Sounds: Present: S1 & S2. Absent: gallop, rub - Extremities Extremities: no ischemia, No edema, Full ROM - Abdominal General gastrointestinal: soft, non-tender, non-distended, normal bowel sounds - Integumentary Integumentary: Present: clear, warm, dry - Neurologic Neurologic: CNII-XII intact, moves all extremities Results - Labs CBC & Chem 7: 05/12/16 21:47 05/12/16 21:47 Labs: Laboratory Last Values WBC 5.3 K/mm3 (4.5-11.0) 05/12/16 21:47 RBC 4.41 M/mm3 (3.65-5.03) 05/12/16 21:47 Hgb 11.1 gm/dl (11.8-15.2) L 05/12/16 21:47 Hct 35.2 % (35.5-45.6) L 05/12/16 21:47 MCV 80 fl (84-94) L 05/12/16 21:47 MCH 25 pg (28-32) L 05/12/16 21:47 MCHC 32 % (32-34) 05/12/16 21:47 RDW 22.2 % (13.2-15.2) H 05/12/16 21:47 Plt Count 108 K/mm3 (140-440) L 05/12/16 21:47 Lymph % (Auto) 16.4 % (13.4-35.0) 05/12/16 21:47 [place] % (Auto) 10.1 % (0.0-7.3) H 05/12/16 21:47 Eos % (Auto) 0.2 % (0.0-4.3) 05/12/16 21:47 Baso % (Auto) 1.1 % (0.0-1.8) 05/12/16 21:47 Lymph # 0.9 K/mm3 (1.2-5.4) L 05/12/16 21:47 [place] # 0.5 K/mm3 (0.0-0.8) 05/12/16 21:47 Eos # 0.0 K/mm3 (0.0-0.4) 05/12/16 21:47 Baso # 0.1 K/mm3 (0.0-0.1) 05/12/16 21:47 Seg Neutrophils % 72.2 % (40.0-70.0) H 05/12/16 21:47 Seg Neutrophils # 3.8 K/mm3 (1.8-7.7) 05/12/16 21:47 PT 15.3 Sec. (12.2-14.9) H 05/12/16 21:47 INR 1.22 (0.87-1.13) H 05/12/16 21:47 APTT 23.9 Sec. (24.2-36.6) L 05/12/16 21:47 VBG pH 7.383 (7.320-7.420) 05/12/16 21:47 Sodium 138 mmol/L (137-145) 05/12/16 21:47 Potassium 3.6 mmol/L (3.6-5.0) 05/12/16 21:47 Chloride 101.1 mmol/L (98-107) 05/12/16 21:47 Carbon Dioxide 25 mmol/L (22-30) 05/12/16 21:47 Anion Gap 16 mmol/L 05/12/16 21:47 BUN 13 mg/dL (9-20) 05/12/16 21:47 Creatinine 0.7 mg/dL (0.8-1.5) L 05/12/16 21:47 Estimated GFR > 60 ml/min 05/12/16 21:47 BUN/Creatinine Ratio 18.57 % 05/12/16 21:47 Glucose 137 mg/dL (75-100) H 05/12/16 21:47 POC Glucose 184 (70-105) H 05/14/16 06:12 Calcium 9.0 mg/dL (8.4-10.2) 05/12/16 21:47 Total Creatine Kinase 63 units/L (55-170) 05/13/16 18:25 CK-MB (CK-2) 2.1 ng/mL (0.0-4.0) 05/13/16 18:25 CK-MB (CK-2) Rel Index 3.3 (0-4) 05/13/16 18:25 Troponin T < 0.010 ng/mL (0.00-0.029) 05/13/16 18:25 NT-Pro-B Natriuret Pep 27.95 pg/mL (0-900) 05/12/16 21:47
[2016-05-16] MEDS: ULTRAM PO PRN ×2 (14:13→22:27)
[2016-05-16] MEDS: TESSALON PERLES PO SCH ×2 (14:13→22:27)
--- NOTE | 2016-05-16 15:45 | Progress Note ---
Assessment and Plan mp: 1. Acute bronchitis 2. COPD exac. 3. Asthma exac. 4. Acute respiratory distress 5. GERD 6. Allergic rhinitis Rec: 1. Solumedrol/ABX 2. Pulmicort/Brovana/albuterol/Atrovent 3. Singulair/Claritin 4. PPI 5. Hold stress test until SOB/wheezing better 6. Outpatient PFTs 7. Monitor clinically Subjective Date of service: 05/16/16 Interval history: Patient continued to have shortness of breath and cough. Doesn't feel that he has improved significantly. He wants Tussionex for cough. Objective Vital Signs - 12hr 05/16/16 05/16/16 05/16/16 06:20 07:00 07:48 Temperature 97.4 F L 97 F L Pulse Rate Pulse Rate [ 57 L Anterior Bilateral Throughout] Pulse Rate [ 60 Apical] Pulse Rate [ From Monitor] Pulse Rate [ 57 L Right Radial] Respiratory 20 16 Rate Respiratory 20 Rate [Anterior Bilateral Throughout] Blood Pressure 121/71 134/78 [Right Arm] O2 Sat by Pulse 98 97 Oximetry 05/16/16 05/16/16 05/16/16 07:58 10:00 11:19 Temperature 98 F Pulse Rate Pulse Rate [ 60 Anterior Bilateral Throughout] Pulse Rate [ Apical] Pulse Rate [ 57 L From Monitor] Pulse Rate [ 64 Right Radial] Respiratory 20 Rate Respiratory 20 Rate [Anterior Bilateral Throughout] Blood Pressure 102/65 [Right Arm] O2 Sat by Pulse 98 Oximetry 05/16/16 12:00 Temperature Pulse Rate 57 L Pulse Rate [ Anterior Bilateral Throughout] Pulse Rate [ Apical] Pulse Rate [ From Monitor] Pulse Rate [ Right Radial] Respiratory Rate Respiratory Rate [Anterior Bilateral Throughout] Blood Pressure [Right Arm] O2 Sat by Pulse Oximetry Constitutional: no acute distress, alert Eyes: non-icteric ENT: oropharynx moist Neck: supple Effort: normal Ascultation: Bilateral: wheezes, rhonchi Cardiovascular: regular rate and rhythm (no mrg) Gastrointestinal: normoactive bowel sounds, soft, non-tender, non-distended Integumentary: normal Extremities: no cyanosis, no edema, pink and warm Neurologic: normal mental status, non-focal exam, pupils equal and round, CN II- XII normal Psychiatric: mood appropriate, affect normal CBC and BMP: 05/12/16 21:47 05/12/16 21:47 ABG, PT/INR, D-dimer: PT/INR, D-dimer PT 15.3 Sec. (12.2-14.9) H 05/12/16 21:47 INR 1.22 (0.87-1.13) H 05/12/16 21:47 Abnormal lab findings: Abnormal Labs 05/14/16 06:12 POC Glucose 184 H
[2016-05-16] MEDS: HEPARIN SUB-Q SCH (15:59)
[2016-05-16] MEDS: PROVENTIL IH PRN (18:11)
[2016-05-16] MEDS: SINGULAIR PO SCH (22:27)
[2016-05-17] MEDS: DUONEB 0.5 MG-3 MG/3 ML SOLN IH SCH ×4 (01:20→20:34)
[2016-05-17] MEDS: ULTRAM PO PRN ×3 (04:52→21:54)
[2016-05-17] MEDS: TESSALON PERLES PO SCH ×3 (05:00→21:54)
[2016-05-17] MEDS: BROVANA NEBU IH SCH ×2 (08:00→20:36)
[2016-05-17] MEDS: PULMICORT IH SCH ×2 (08:00→20:35)
[2016-05-17] MEDS: HEPARIN SUB-Q SCH ×3 (10:00→21:57)
[2016-05-17] MEDS: NITRO-BID 2% TP SCH ×4 (10:07→20:34)
[2016-05-17] MEDS: ROCEPHIN/NS 1 GM/50 ML 1 GM/50 ML BAG IV SCH (10:09)
[2016-05-17] MEDS: ZITHROMAX 500 MG in NACL 0.9% 250ML 250 ML IV SCH (10:11)
[2016-05-17] MEDS: MUCINEX ER PO SCH ×4 (10:12→21:57)
--- NOTE | 2016-05-17 10:18 | Progress Note ---
Assessment and Plan Assessment and plan: 1. Acute asthma/COPD exacerbation. Continue IV antibiotics, Pulmicort, Brovana and Singulair. Continue IV steroids. Pulmonary following. Patient will need outpatient PFTs. 2. Acute bronchitis. Continue Mucinex and add Tessalon Perles. 3. Chest pain. Patient will undergo stress thallium when COPD exacerbation resolved. 4. Coronary artery disease. Stable. History Interval history: 60-year-old male who presented through the emerge department with complaints of reproducible chest pain and cough. Patient unable to undergo stress thallium evaluation secondary to wheezing. Patient still complains of some dyspnea with exertion and complains of persistent cough. Hospitalist Physical - Constitutional Vitals: Temp Pulse Resp BP Pulse Ox 97.3 F L 69 22 149/88 96 05/17/16 07:00 05/17/16 07:00 05/17/16 07:00 05/17/16 07:00 05/17/16 07:00 General appearance: Present: no acute distress, well-nourished - EENT Eyes: Present: PERRL, EOM intact ENT: hearing intact, clear oral mucosa, dentition normal - Neck Neck: Present: supple, normal ROM - Respiratory Respiratory effort: normal Respiratory: bilateral: diminished, rhonchi, wheezing - Cardiovascular Rhythm: regular Heart Sounds: Present: S1 & S2. Absent: gallop, rub - Extremities Extremities: no ischemia, No edema, Full ROM - Abdominal General gastrointestinal: soft, non-tender, non-distended, normal bowel sounds - Integumentary Integumentary: Present: clear, warm, dry - Neurologic Neurologic: CNII-XII intact, moves all extremities Results - Labs CBC & Chem 7: 05/12/16 21:47 05/12/16 21:47 Labs: Laboratory Last Values WBC 5.3 K/mm3 (4.5-11.0) 05/12/16 21:47 RBC 4.41 M/mm3 (3.65-5.03) 05/12/16 21:47 Hgb 11.1 gm/dl (11.8-15.2) L 05/12/16 21:47 Hct 35.2 % (35.5-45.6) L 05/12/16 21:47 MCV 80 fl (84-94) L 05/12/16 21:47 MCH 25 pg (28-32) L 05/12/16 21:47 MCHC 32 % (32-34) 05/12/16 21:47 RDW 22.2 % (13.2-15.2) H 05/12/16 21:47 Plt Count 108 K/mm3 (140-440) L 05/12/16 21:47 Lymph % (Auto) 16.4 % (13.4-35.0) 05/12/16 21:47 [place] % (Auto) 10.1 % (0.0-7.3) H 05/12/16 21:47 Eos % (Auto) 0.2 % (0.0-4.3) 05/12/16 21:47 Baso % (Auto) 1.1 % (0.0-1.8) 05/12/16 21:47 Lymph # 0.9 K/mm3 (1.2-5.4) L 05/12/16 21:47 [place] # 0.5 K/mm3 (0.0-0.8) 05/12/16 21:47 Eos # 0.0 K/mm3 (0.0-0.4) 05/12/16 21:47 Baso # 0.1 K/mm3 (0.0-0.1) 05/12/16 21:47 Seg Neutrophils % 72.2 % (40.0-70.0) H 05/12/16 21:47 Seg Neutrophils # 3.8 K/mm3 (1.8-7.7) 05/12/16 21:47 PT 15.3 Sec. (12.2-14.9) H 05/12/16 21:47 INR 1.22 (0.87-1.13) H 05/12/16 21:47 APTT 23.9 Sec. (24.2-36.6) L 05/12/16 21:47 VBG pH 7.383 (7.320-7.420) 05/12/16 21:47 Sodium 138 mmol/L (137-145) 05/12/16 21:47 Potassium 3.6 mmol/L (3.6-5.0) 05/12/16 21:47 Chloride 101.1 mmol/L (98-107) 05/12/16 21:47 Carbon Dioxide 25 mmol/L (22-30) 05/12/16 21:47 Anion Gap 16 mmol/L 05/12/16 21:47 BUN 13 mg/dL (9-20) 05/12/16 21:47 Creatinine 0.7 mg/dL (0.8-1.5) L 05/12/16 21:47 Estimated GFR > 60 ml/min 05/12/16 21:47 BUN/Creatinine Ratio 18.57 % 05/12/16 21:47 Glucose 137 mg/dL (75-100) H 05/12/16 21:47 POC Glucose 136 (70-105) H 05/17/16 01:07 Calcium 9.0 mg/dL (8.4-10.2) 05/12/16 21:47 Total Creatine Kinase 63 units/L (55-170) 05/13/16 18:25 CK-MB (CK-2) 2.1 ng/mL (0.0-4.0) 05/13/16 18:25 CK-MB (CK-2) Rel Index 3.3 (0-4) 05/13/16 18:25 Troponin T < 0.010 ng/mL (0.00-0.029) 05/13/16 18:25 NT-Pro-B Natriuret Pep 27.95 pg/mL (0-900) 05/12/16 21:47
[2016-05-17] MEDS: ASPIRIN PO SCH (10:30)
[2016-05-17] MEDS: PROTONIX PO SCH (10:30)
--- NOTE | 2016-05-17 11:07 | XRay Report ---
ROUTINE CHEST, TWO VIEWS: HISTORY: Dyspnea. The trachea, heart, mediastinal contour, lung corral and bony thorax are unremarkable. IMPRESSION: Unremarkable chest x-ray.
--- NOTE | 2016-05-17 13:04 | Progress Note ---
Assessment and Plan mp: 1. Acute bronchitis 2. COPD exac. 3. Asthma exac. 4. Acute respiratory distress 5. GERD 6. Allergic rhinitis 7. Suspect some degree of narcotic dependency, given demand for Tussionex Rec: 1. Solumedrol/ABX 2. Pulmicort/Brovana/albuterol/Atrovent 3. Singulair/Claritin 4. PPI 5. Hold stress test until SOB/wheezing better 6. Outpatient PFTs 7. Monitor clinically 8. Tessalon perle or cough. Subjective Date of service: 05/17/16 Interval history: Patient continued to have shortness of breath and cough. Doesn't feel that he has improved significantly. He insists to order Tussionex for cough. Overall appears to be improved Objective Vital Signs - 12hr 05/17/16 05/17/16 05/17/16 01:21 01:30 03:50 Temperature Pulse Rate 60 Pulse Rate [ 64 62 Anterior Bilateral Throughout] Pulse Rate [ Apical] Respiratory Rate Respiratory 18 18 Rate [Anterior Bilateral Throughout] Blood Pressure [Right Arm] O2 Sat by Pulse Oximetry 05/17/16 05/17/16 05/17/16 05:36 07:00 08:00 Temperature 97.7 F 97.3 F L Pulse Rate Pulse Rate [ 70 Anterior Bilateral Throughout] Pulse Rate [ 62 69 Apical] Respiratory 22 22 Rate Respiratory 20 Rate [Anterior Bilateral Throughout] Blood Pressure 146/86 149/88 [Right Arm] O2 Sat by Pulse 97 96 Oximetry 05/17/16 08:10 Temperature Pulse Rate Pulse Rate [ 75 Anterior Bilateral Throughout] Pulse Rate [ Apical] Respiratory Rate Respiratory 20 Rate [Anterior Bilateral Throughout] Blood Pressure [Right Arm] O2 Sat by Pulse Oximetry Constitutional: no acute distress, alert Eyes: non-icteric ENT: oropharynx moist Neck: supple Effort: normal Ascultation: Bilateral: wheezes (improving), rhonchi (improving) Cardiovascular: regular rate and rhythm (no mrg) Gastrointestinal: normoactive bowel sounds, soft, non-tender, non-distended Integumentary: normal Extremities: no cyanosis, no edema, pink and warm Neurologic: normal mental status, non-focal exam, pupils equal and round, CN II- XII normal Psychiatric: mood appropriate, affect normal CBC and BMP: 05/12/16 21:47 05/12/16 21:47 ABG, PT/INR, D-dimer: PT/INR, D-dimer PT 15.3 Sec. (12.2-14.9) H 05/12/16 21:47 INR 1.22 (0.87-1.13) H 05/12/16 21:47 Abnormal lab findings: Abnormal Labs 05/14/16 05/16/16 05/17/16 06:12 16:26 01:07 POC Glucose 184 H 117 H 136 H
[2016-05-17] MEDS: CLARITIN PO SCH (16:15)
[2016-05-17] MEDS: SINGULAIR PO SCH (21:54)
[2016-05-17] MEDS: NORCO 5/325 PO PRN (22:00)
[2016-05-18] MEDS: PROVENTIL IH PRN (00:45)
[2016-05-18] MEDS ORDERED: ROBITUSSIN PO PRN (01:32)
[2016-05-18] MEDS: DUONEB 0.5 MG-3 MG/3 ML SOLN IH SCH ×4 (01:49→20:58)
[2016-05-18] MEDS: NORCO 5/325 PO PRN ×4 (01:55→21:57)
[2016-05-18] MEDS: ULTRAM PO PRN ×3 (04:13→23:34)
[2016-05-18] MEDS: HEPARIN SUB-Q SCH ×3 (05:13→21:57)
[2016-05-18] MEDS: NITRO-BID 2% TP SCH ×4 (06:28→17:49)
[2016-05-18] MEDS: TESSALON PERLES PO SCH ×3 (06:28→21:56)
[2016-05-18 07:09] LABS: Basophils % (Auto) 0.1 % (0.0-1.8); Hematocrit 35.2 % (35.5-45.6); Hemoglobin 10.9 gm/dl (11.8-15.2); Mean Corpuscular HGB Conc 31 % (32-34); Mean Corpuscular Volume 81 fl (84-94); Platelet Count 151 K/mm3 (140-440); Red Blood Count 4.35 M/mm3 (3.65-5.03); White Blood Count 5.3 K/mm3 (4.5-11.0)
[2016-05-18 07:27] LABS: Mean Corpuscular Hemoglobin 25 pg (28-32); Red Cell Distribution Width 21.5 % (13.2-15.2)
[2016-05-18 07:31] LABS: Potassium TNR mmol/L (3.6-5.0); Sodium TNR mmol/L (137-145)
[2016-05-18 07:32] LABS: Anion Gap TNR mmol/L; BUN/Creatinine Ratio TNR; Blood Urea Nitrogen TNR mg/dL (9-20); Calcium TNR mg/dL (8.4-10.2); Carbon Dioxide TNR mmol/L (22-30); Chloride TNR mmol/L (98-107); Glucose TNR mg/dL (75-100)
[2016-05-18] MEDS: BROVANA NEBU IH SCH ×2 (08:17→20:57)
[2016-05-18] MEDS: PULMICORT IH SCH ×2 (08:17→20:57)
[2016-05-18] MEDS: PROTONIX PO SCH (09:35)
[2016-05-18] MEDS: ASPIRIN PO SCH (09:36)
[2016-05-18] MEDS: CLARITIN PO SCH (09:36)
[2016-05-18] MEDS: ROCEPHIN/NS 1 GM/50 ML 1 GM/50 ML BAG IV SCH (09:37)
--- NOTE | 2016-05-18 10:03 | Progress Note ---
Assessment and Plan Assessment and plan: 1. Acute asthma/COPD exacerbation. Continue IV antibiotics, Pulmicort, Brovana and Singulair. Continue IV steroids. Pulmonary following. Patient will need outpatient PFTs. 2. Acute bronchitis. Continue Mucinex and Tessalon Perles. 3. Chest pain. Patient will undergo stress thallium when COPD exacerbation resolved. 4. Coronary artery disease. Stable. History Interval history: 60-year-old male who presented through the emerge department with complaints of reproducible chest pain and cough. Patient unable to undergo stress thallium evaluation secondary to wheezing. Patient still complains of some dyspnea with exertion and complains of persistent cough. Hospitalist Physical - Constitutional Vitals: Temp Pulse Resp BP Pulse Ox 97.3 F L 62 17 119/72 96 05/18/16 04:25 05/18/16 08:18 05/18/16 08:18 05/18/16 04:25 05/18/16 04:25 General appearance: Present: no acute distress, well-nourished - EENT Eyes: Present: PERRL, EOM intact ENT: hearing intact, clear oral mucosa, dentition normal - Neck Neck: Present: supple, normal ROM - Respiratory Respiratory effort: normal Respiratory: bilateral: diminished, rhonchi, wheezing - Cardiovascular Rhythm: regular Heart Sounds: Present: S1 & S2. Absent: gallop, rub - Extremities Extremities: no ischemia, No edema, Full ROM - Abdominal General gastrointestinal: soft, non-tender, non-distended, normal bowel sounds - Integumentary Integumentary: Present: clear, warm, dry - Neurologic Neurologic: CNII-XII intact, moves all extremities Results - Labs CBC & Chem 7: 05/18/16 06:12 05/18/16 06:12 Labs: Laboratory Last Values WBC 5.3 K/mm3 (4.5-11.0) 05/18/16 06:12 RBC 4.35 M/mm3 (3.65-5.03) 05/18/16 06:12 Hgb 10.9 gm/dl (11.8-15.2) L 05/18/16 06:12 Hct 35.2 % (35.5-45.6) L 05/18/16 06:12 MCV 81 fl (84-94) L 05/18/16 06:12 MCH 25 pg (28-32) L 05/18/16 06:12 MCHC 31 % (32-34) L 05/18/16 06:12 RDW 21.5 % (13.2-15.2) H 05/18/16 06:12 Plt Count 151 K/mm3 (140-440) 05/18/16 06:12 Lymph % (Auto) 9.0 % (13.4-35.0) L 05/18/16 06:12 [place] % (Auto) 12.8 % (0.0-7.3) H 05/18/16 06:12 Eos % (Auto) 0.0 % (0.0-4.3) 05/18/16 06:12 Baso % (Auto) 0.1 % (0.0-1.8) 05/18/16 06:12 Lymph # 0.5 K/mm3 (1.2-5.4) L 05/18/16 06:12 [place] # 0.7 K/mm3 (0.0-0.8) 05/18/16 06:12 Eos # 0.0 K/mm3 (0.0-0.4) 05/18/16 06:12 Baso # 0.0 K/mm3 (0.0-0.1) 05/18/16 06:12 Seg Neutrophils % 78.1 % (40.0-70.0) H 05/18/16 06:12 Seg Neutrophils # 4.1 K/mm3 (1.8-7.7) 05/18/16 06:12 PT 15.3 Sec. (12.2-14.9) H 05/12/16 21:47 INR 1.22 (0.87-1.13) H 05/12/16 21:47 APTT 23.9 Sec. (24.2-36.6) L 05/12/16 21:47 VBG pH 7.383 (7.320-7.420) 05/12/16 21:47 Sodium TNR 05/18/16 06:12 Potassium TNR 05/18/16 06:12 Chloride TNR 05/18/16 06:12 Carbon Dioxide TNR 05/18/16 06:12 Anion Gap TNR 05/18/16 06:12 BUN TNR 05/18/16 06:12 Creatinine TNR 05/18/16 06:12 Estimated GFR TNR 05/18/16 06:12 BUN/Creatinine Ratio TNR 05/18/16 06:12 Glucose TNR 05/18/16 06:12 POC Glucose 205 (70-105) H 05/18/16 06:17 Calcium TNR 05/18/16 06:12 Total Creatine Kinase 63 units/L (55-170) 05/13/16 18:25 CK-MB (CK-2) 2.1 ng/mL (0.0-4.0) 05/13/16 18:25 CK-MB (CK-2) Rel Index 3.3 (0-4) 05/13/16 18:25 Troponin T < 0.010 ng/mL (0.00-0.029) 05/13/16 18:25 NT-Pro-B Natriuret Pep 27.95 pg/mL (0-900) 05/12/16 21:47
[2016-05-18] MEDS: ZITHROMAX 500 MG in NACL 0.9% 250ML 250 ML IV SCH (10:17)
[2016-05-18 11:40] LABS: Alanine Aminotransferase 141 units/L (7-56); Albumin 3.6 g/dL (3.9-5); Albumin/Globulin Ratio 1.2 %; Alkaline Phosphatase 79 units/L (35-129); Anion Gap 18 mmol/L; BUN/Creatinine Ratio 24.28; Bilirubin,Total 0.4 mg/dL (0.1-1.2); Blood Urea Nitrogen 17 mg/dL (9-20); Calcium 8.9 mg/dL (8.4-10.2); Carbon Dioxide 23 mmol/L (22-30); Chloride 96.7 mmol/L (98-107); Glucose 320 mg/dL (75-100); Potassium 4.5 mmol/L (3.6-5.0); Sodium 133 mmol/L (137-145); Total Protein 6.7 g/dL (6.3-8.2)
[2016-05-18] MEDS: ZOFRAN IV PRN (11:41)
--- NOTE | 2016-05-18 12:33 | Progress Note ---
Assessment and Plan 60 y/o male with obstructive lung disease, admitted with acute exacerbation. 1. Will change roids to 60q6 to see if the increase frequency will help with inflammation 2. Continue BID pulmicort and brovana 3. Will repeat CXR 4. may benefit from lasix therapy. I suspect that I/O are not accurate. Will reassess tomorrow. Subjective Date of service: 05/18/16 Interval history: Patient complains of continued pain and coughing all night. Lying in bed asleep but easily aroused. Wants pain meds increased. On room air and stable. Does not appear to be in distress at all. Objective Vital Signs - 12hr 05/18/16 05/18/16 05/18/16 00:45 00:51 00:54 Temperature 980 F H Pulse Rate [ 69 65 Anterior Bilateral Throughout] Pulse Rate [ 76 Apical] Pulse Rate [ From Monitor] Respiratory 20 Rate Respiratory 20 24 Rate [Anterior Bilateral Throughout] Blood Pressure 132/81 [Right Arm] O2 Sat by Pulse 95 Oximetry 05/18/16 05/18/16 05/18/16 04:25 08:00 08:18 Temperature 97.3 F L Pulse Rate [ 61 62 Anterior Bilateral Throughout] Pulse Rate [ 68 Apical] Pulse Rate [ From Monitor] Respiratory 20 Rate Respiratory 17 17 Rate [Anterior Bilateral Throughout] Blood Pressure 119/72 [Right Arm] O2 Sat by Pulse 96 Oximetry 05/18/16 10:32 Temperature 97.8 F Pulse Rate [ Anterior Bilateral Throughout] Pulse Rate [ Apical] Pulse Rate [ 67 From Monitor] Respiratory 20 Rate Respiratory Rate [Anterior Bilateral Throughout] Blood Pressure 118/81 [Right Arm] O2 Sat by Pulse Oximetry Constitutional: no acute distress, alert Eyes: non-icteric ENT: oropharynx moist Neck: supple Effort: normal Ascultation: Bilateral: wheezes, rhonchi Cardiovascular: regular rate and rhythm (no mrg) Gastrointestinal: normoactive bowel sounds, soft, non-tender, non-distended Integumentary: normal Extremities: no cyanosis, no edema, pink and warm Neurologic: normal mental status, non-focal exam, pupils equal and round, CN II- XII normal Psychiatric: mood appropriate, affect normal CBC and BMP: 05/18/16 06:12 05/18/16 11:00 ABG, PT/INR, D-dimer: PT/INR, D-dimer PT 15.3 Sec. (12.2-14.9) H 05/12/16 21:47 INR 1.22 (0.87-1.13) H 05/12/16 21:47 Abnormal lab findings: Abnormal Labs 05/14/16 05/16/16 05/17/16 06:12 16:26 01:07 Hgb Hct MCV MCH MCHC RDW Lymph % (Auto) [place] % (Auto) Lymph # Seg Neutrophils % Sodium Chloride Creatinine Glucose POC Glucose 184 H 117 H 136 H AST ALT Albumin 05/17/16 05/17/16 05/17/16 05:31 12:17 16:25 Hgb Hct MCV MCH MCHC RDW Lymph % (Auto) [place] % (Auto) Lymph # Seg Neutrophils % Sodium Chloride Creatinine Glucose POC Glucose 209 H 244 H 122 H AST ALT Albumin 05/18/16 05/18/16 05/18/16 00:13 06:12 06:17 Hgb 10.9 L Hct 35.2 L MCV 81 L MCH 25 L MCHC 31 L RDW 21.5 H Lymph % (Auto) 9.0 L [place] % (Auto) 12.8 H Lymph # 0.5 L Seg Neutrophils % 78.1 H Sodium Chloride Creatinine Glucose POC Glucose 233 H 205 H AST ALT Albumin 05/18/16 11:00 Hgb Hct MCV MCH MCHC RDW Lymph % (Auto) [place] % (Auto) Lymph # Seg Neutrophils % Sodium 133 L Chloride 96.7 L Creatinine 0.7 L Glucose 320 H POC Glucose AST 91 H ALT 141 H Albumin 3.6 L
[2016-05-18] MEDS: SINGULAIR PO SCH (21:56)
[2016-05-19] MEDS: DUONEB 0.5 MG-3 MG/3 ML SOLN IH SCH ×4 (01:50→21:00)
[2016-05-19] MEDS ORDERED: BENADRYL PO STA (02:43)
[2016-05-19] MEDS: NORCO 5/325 PO PRN ×3 (02:58→22:01)
[2016-05-19] MEDS: HEPARIN SUB-Q SCH ×3 (05:20→22:00)
[2016-05-19] MEDS: TESSALON PERLES PO SCH ×3 (05:45→22:01)
[2016-05-19] MEDS: ULTRAM PO PRN (05:45)
[2016-05-19] MEDS: NITRO-BID 2% TP SCH ×4 (05:46→17:43)
[2016-05-19 06:46] LABS: Mean Corpuscular HGB Conc 30 % (32-34); Mean Corpuscular Volume 81 fl (84-94); Platelet Count 128 K/mm3 (140-440); White Blood Count 3.9 K/mm3 (4.5-11.0)
[2016-05-19 06:57] LABS: Anion Gap 18 mmol/L; BUN/Creatinine Ratio 27.14; Blood Urea Nitrogen 19 mg/dL (9-20); Calcium 8.7 mg/dL (8.4-10.2); Carbon Dioxide 21 mmol/L (22-30); Chloride 96.9 mmol/L (98-107); Glucose 254 mg/dL (75-100); Potassium 4.5 mmol/L (3.6-5.0); Sodium 131 mmol/L (137-145)
[2016-05-19 07:25] LABS: Hematocrit 33.3 % (35.5-45.6); Hemoglobin 9.9 gm/dl (11.8-15.2); Mean Corpuscular Hemoglobin 24 pg (28-32); Red Cell Distribution Width 20.5 % (13.2-15.2)
[2016-05-19] MEDS: PULMICORT IH SCH ×2 (09:40→19:42)
[2016-05-19] MEDS: BROVANA NEBU IH SCH ×2 (09:40→19:42)
[2016-05-19 10:21] LABS: Basophils % (Manual) 0 % (0.0-1.8); Blastocytes % (Manual) 0 %; Eosinophils % (Manual) 0 % (0.0-4.3); Hypochromasia 1+
[2016-05-19 10:22] LABS: Anisocytosis 1+
[2016-05-19 10:23] LABS: Diff Status Complete
[2016-05-19] MEDS: CLARITIN PO SCH (11:00)
[2016-05-19] MEDS: ASPIRIN PO SCH (11:00)
[2016-05-19] MEDS: PROTONIX PO SCH (11:00)
--- NOTE | 2016-05-19 11:00 | Progress Note ---
Assessment and Plan Assessment and plan: 1. Acute asthma/COPD exacerbation. Continue IV antibiotics, Pulmicort, Brovana and Singulair. Continue IV steroids. Pulmonary following. Patient will need outpatient PFTs. 2. Acute hypoxic respiratory failure. Etiology likely secondary to above but Check echocardiogram for further evaluation. 3. Acute bronchitis. Continue Mucinex and Tessalon Perles. 4. Chest pain. Patient will undergo stress thallium when COPD exacerbation resolved. 5. Coronary artery disease. Stable. History Interval history: 60-year-old male who presented through the emerge department with complaints of reproducible chest pain and cough. Patient unable to undergo stress thallium evaluation secondary to wheezing. Patient still complains of some dyspnea with exertion and complains of persistent cough. Hospitalist Physical - Constitutional Vitals: Temp Pulse Resp BP Pulse Ox 98.2 F 87 17 140/71 97 05/19/16 08:15 05/19/16 08:32 05/19/16 08:32 05/19/16 08:15 05/19/16 08:31 General appearance: Present: no acute distress, well-nourished - EENT Eyes: Present: PERRL, EOM intact ENT: hearing intact, clear oral mucosa, dentition normal - Neck Neck: Present: supple, normal ROM - Respiratory Respiratory effort: normal Respiratory: bilateral: CTA - Cardiovascular Rhythm: regular Heart Sounds: Present: S1 & S2. Absent: gallop, rub - Extremities Extremities: no ischemia, No edema, Full ROM - Abdominal General gastrointestinal: soft, non-tender, non-distended, normal bowel sounds - Integumentary Integumentary: Present: clear, warm, dry - Neurologic Neurologic: CNII-XII intact, moves all extremities Results - Labs CBC & Chem 7: 05/19/16 05:11 05/19/16 05:11 Labs: Laboratory Last Values WBC 3.9 K/mm3 (4.5-11.0) L 05/19/16 05:11 RBC 4.10 M/mm3 (3.65-5.03) 05/19/16 05:11 Hgb 9.9 gm/dl (11.8-15.2) L 05/19/16 05:11 Hct 33.3 % (35.5-45.6) L 05/19/16 05:11 MCV 81 fl (84-94) L 05/19/16 05:11 MCH 24 pg (28-32) L 05/19/16 05:11 MCHC 30 % (32-34) L 05/19/16 05:11 RDW 20.5 % (13.2-15.2) H 05/19/16 05:11 Plt Count 128 K/mm3 (140-440) L 05/19/16 05:11 Lymph % (Auto) 9.0 % (13.4-35.0) L 05/18/16 06:12 [place] % (Auto) 12.8 % (0.0-7.3) H 05/18/16 06:12 Eos % (Auto) 0.0 % (0.0-4.3) 05/18/16 06:12 Baso % (Auto) 0.1 % (0.0-1.8) 05/18/16 06:12 Lymph # 0.5 K/mm3 (1.2-5.4) L 05/18/16 06:12 [place] # 0.7 K/mm3 (0.0-0.8) 05/18/16 06:12 Eos # 0.0 K/mm3 (0.0-0.4) 05/18/16 06:12 Baso # 0.0 K/mm3 (0.0-0.1) 05/18/16 06:12 Add Manual Diff Complete 05/19/16 05:11 Total Counted 100 05/19/16 05:11 Seg Neutrophils % 78.1 % (40.0-70.0) H 05/18/16 06:12 Seg Neuts % (Manual) 72.0 % (40.0-70.0) H 05/19/16 05:11 Band Neutrophils % 5.0 % 05/19/16 05:11 Lymphocytes % (Manual) 13.0 % (13.4-35.0) L 05/19/16 05:11 Reactive Lymphs % (Man) 0 % 05/19/16 05:11 Monocytes % (Manual) 10.0 % (0.0-7.3) H 05/19/16 05:11 Eosinophils % (Manual) 0 % (0.0-4.3) 05/19/16 05:11 Basophils % (Manual) 0 % (0.0-1.8) 05/19/16 05:11 Metamyelocytes % 0 % 05/19/16 05:11 Myelocytes % 0 % 05/19/16 05:11 Promyelocytes % 0 % 05/19/16 05:11 Blast Cells % 0 % 05/19/16 05:11 Nucleated RBC % Not Reportable 05/19/16 05:11 Seg Neutrophils # 4.1 K/mm3 (1.8-7.7) 05/18/16 06:12 Seg Neutrophils # Man 2.8 K/mm3 (1.8-7.7) 05/19/16 05:11 Band Neutrophils # 0.2 K/mm3 05/19/16 05:11 Lymphocytes # (Manual) 0.5 K/mm3 (1.2-5.4) L 05/19/16 05:11 Abs React Lymphs (Man) 0.0 K/mm3 05/19/16 05:11 Monocytes # (Manual) 0.4 K/mm3 (0.0-0.8) 05/19/16 05:11 Eosinophils # (Manual) 0.0 K/mm3 (0.0-0.4) 05/19/16 05:11 Basophils # (Manual) 0.0 K/mm3 (0.0-0.1) 05/19/16 05:11 Metamyelocytes # 0.0 K/mm3 05/19/16 05:11 Myelocytes # 0.0 K/mm3 05/19/16 05:11 Promyelocytes # 0.0 K/mm3 05/19/16 05:11 Blast Cells # 0.0 K/mm3 05/19/16 05:11 WBC Morphology Not Reportable 05/19/16 05:11 Hypersegmented Neuts Not Reportable 05/19/16 05:11 Hyposegmented Neuts Not Reportable 05/19/16 05:11 Hypogranular Neuts Not Reportable 05/19/16 05:11 Smudge Cells Not Reportable 05/19/16 05:11 Toxic Granulation Not Reportable 05/19/16 05:11 Toxic Vacuolation Not Reportable 05/19/16 05:11 Dohle Bodies Not Reportable 05/19/16 05:11 Pelger-Huet Anomaly Not Reportable 05/19/16 05:11 Chance Rods Not Reportable 05/19/16 05:11 Platelet Estimate Not Reportable 05/19/16 05:11 Clumped Platelets Not Reportable 05/19/16 05:11 Plt Clumps, EDTA Not Reportable 05/19/16 05:11 Large Platelets Not Reportable 05/19/16 05:11 Giant Platelets Not Reportable 05/19/16 05:11 Platelet Satelliting Not Reportable 05/19/16 05:11 Plt Morphology Comment Not Reportable 05/19/16 05:11 RBC Morphology Not Reportable 05/19/16 05:11 Dimorphic RBCs Not Reportable 05/19/16 05:11 Polychromasia Not Reportable 05/19/16 05:11 Hypochromasia 1+ 05/19/16 05:11 Poikilocytosis Not Reportable 05/19/16 05:11 Anisocytosis 1+ 05/19/16 05:11 Microcytosis Not Reportable 05/19/16 05:11 Macrocytosis Not Reportable 05/19/16 05:11 Spherocytes Not Reportable 05/19/16 05:11 Pappenheimer Bodies Not Reportable 05/19/16 05:11 Sickle Cells Not Reportable 05/19/16 05:11 Target Cells Not Reportable 05/19/16 05:11 Tear Drop Cells Not Reportable 05/19/16 05:11 Ovalocytes Not Reportable 05/19/16 05:11 Helmet Cells Not Reportable 05/19/16 05:11 [place] Bodies Not Reportable 05/19/16 05:11 [place] Rings Not Reportable 05/19/16 05:11 [place] Cells Not Reportable 05/19/16 05:11 Bite Cells Not Reportable 05/19/16 05:11 Crenated Cell Not Reportable 05/19/16 05:11 Elliptocytes Not Reportable 05/19/16 05:11 Acanthocytes (Spur) Not Reportable 05/19/16 05:11 Rouleaux Not Reportable 05/19/16 05:11 Hemoglobin C Crystals Not Reportable 05/19/16 05:11 Schistocytes Not Reportable 05/19/16 05:11 Malaria parasites Not Reportable 05/19/16 05:11 Juanjo Bodies Not Reportable 05/19/16 05:11 Hem Pathologist Commnt No 05/19/16 05:11 PT 15.3 Sec. (12.2-14.9) H 05/12/16 21:47 INR 1.22 (0.87-1.13) H 05/12/16 21:47 APTT 23.9 Sec. (24.2-36.6) L 05/12/16 21:47 VBG pH 7.383 (7.320-7.420) 05/12/16 21:47 Sodium 131 mmol/L (137-145) L 05/19/16 05:11 Potassium 4.5 mmol/L (3.6-5.0) 05/19/16 05:11 Chloride 96.9 mmol/L (98-107) L 05/19/16 05:11 Carbon Dioxide 21 mmol/L (22-30) L 05/19/16 05:11 Anion Gap 18 mmol/L 05/19/16 05:11 BUN 19 mg/dL (9-20) 05/19/16 05:11 Creatinine 0.7 mg/dL (0.8-1.5) L 05/19/16 05:11 Estimated GFR > 60 ml/min 05/19/16 05:11 BUN/Creatinine Ratio 27.14 % 05/19/16 05:11 Glucose 254 mg/dL (75-100) H 05/19/16 05:11 POC Glucose 221 (70-105) H 05/19/16 01:20 Calcium 8.7 mg/dL (8.4-10.2) 05/19/16 05:11 Total Bilirubin 0.4 mg/dL (0.1-1.2) 05/18/16 11:00 AST 91 units/L (5-40) H 05/18/16 11:00 ALT 141 units/L (7-56) H 05/18/16 11:00 Alkaline Phosphatase 79 units/L (35-129) 05/18/16 11:00 Total Creatine Kinase 63 units/L (55-170) 05/13/16 18:25 CK-MB (CK-2) 2.1 ng/mL (0.0-4.0) 05/13/16 18:25 CK-MB (CK-2) Rel Index 3.3 (0-4) 05/13/16 18:25 Troponin T < 0.010 ng/mL (0.00-0.029) 05/13/16 18:25 NT-Pro-B Natriuret Pep 27.95 pg/mL (0-900) 05/12/16 21:47 Total Protein 6.7 g/dL (6.3-8.2) 05/18/16 11:00 Albumin 3.6 g/dL (3.9-5) L 05/18/16 11:00 Albumin/Globulin Ratio 1.2 % 05/18/16 11:00
--- NOTE | 2016-05-19 13:21 | Progress Note ---
Assessment and Plan 60 y/o male with obstructive lung disease, admitted with acute exacerbation. 1. Continue steroids at current dosing 2. Continue BID pulmicort and brovana 3. CXR over the weekend was negative. 4. Still feel that I/O are not accurate and patient is not that positive from a fluid standpoint. Hold on Lasix 5. Per patient, only thing that has stopped coughing in the past is tussinex. Ok from my standpoint, but will defer to primary team Subjective Date of service: 05/19/16 Interval history: No acute events. Per patient still with really bad cough. I did not increase steroids secondary to elevated sugars Objective Vital Signs - 12hr 05/19/16 05/19/16 05/19/16 01:23 01:51 02:06 Temperature Pulse Rate 68 Pulse Rate [ 78 80 Anterior Bilateral Throughout] Pulse Rate [ Right Radial] Respiratory Rate Respiratory 18 18 Rate [Anterior Bilateral Throughout] Blood Pressure Blood Pressure [Right Arm] O2 Sat by Pulse Oximetry 05/19/16 05/19/16 05/19/16 03:20 04:00 05:46 Temperature 98.4 F Pulse Rate 85 Pulse Rate [ Anterior Bilateral Throughout] Pulse Rate [ 85 Right Radial] Respiratory 20 18 Rate Respiratory Rate [Anterior Bilateral Throughout] Blood Pressure 137/87 Blood Pressure 137/87 [Right Arm] O2 Sat by Pulse 98 Oximetry 05/19/16 05/19/16 05/19/16 08:15 08:19 08:31 Temperature 98.2 F Pulse Rate 64 Pulse Rate [ 83 Anterior Bilateral Throughout] Pulse Rate [ Right Radial] Respiratory 18 18 Rate Respiratory 17 Rate [Anterior Bilateral Throughout] Blood Pressure Blood Pressure 140/71 [Right Arm] O2 Sat by Pulse 96 97 Oximetry 05/19/16 08:32 Temperature Pulse Rate Pulse Rate [ 87 Anterior Bilateral Throughout] Pulse Rate [ Right Radial] Respiratory Rate Respiratory 17 Rate [Anterior Bilateral Throughout] Blood Pressure Blood Pressure [Right Arm] O2 Sat by Pulse Oximetry Constitutional: no acute distress, alert Eyes: non-icteric ENT: oropharynx moist Neck: supple Effort: normal Ascultation: Bilateral: wheezes, rhonchi Cardiovascular: regular rate and rhythm (no mrg) Gastrointestinal: normoactive bowel sounds, soft, non-tender, non-distended Integumentary: normal Extremities: no cyanosis, no edema, pink and warm Neurologic: normal mental status, non-focal exam, pupils equal and round, CN II- XII normal Psychiatric: mood appropriate, affect normal CBC and BMP: 05/19/16 05:11 05/19/16 05:11 ABG, PT/INR, D-dimer: PT/INR, D-dimer PT 15.3 Sec. (12.2-14.9) H 05/12/16 21:47 INR 1.22 (0.87-1.13) H 05/12/16 21:47 Abnormal lab findings: Abnormal Labs 05/14/16 05/16/16 05/17/16 06:12 16:26 01:07 WBC Hgb Hct MCV MCH MCHC RDW Plt Count Lymph % (Auto) [place] % (Auto) Lymph # Seg Neutrophils % Seg Neuts % (Manual) Lymphocytes % (Manual) Monocytes % (Manual) Lymphocytes # (Manual) Sodium Chloride Carbon Dioxide Creatinine Glucose POC Glucose 184 H 117 H 136 H AST ALT Albumin 05/17/16 05/17/16 05/17/16 05:31 12:17 16:25 WBC Hgb Hct MCV MCH MCHC RDW Plt Count Lymph % (Auto) [place] % (Auto) Lymph # Seg Neutrophils % Seg Neuts % (Manual) Lymphocytes % (Manual) Monocytes % (Manual) Lymphocytes # (Manual) Sodium Chloride Carbon Dioxide Creatinine Glucose POC Glucose 209 H 244 H 122 H AST ALT Albumin 05/18/16 05/18/16 05/18/16 00:13 06:12 06:17 WBC Hgb 10.9 L Hct 35.2 L MCV 81 L MCH 25 L MCHC 31 L RDW 21.5 H Plt Count Lymph % (Auto) 9.0 L [place] % (Auto) 12.8 H Lymph # 0.5 L Seg Neutrophils % 78.1 H Seg Neuts % (Manual) Lymphocytes % (Manual) Monocytes % (Manual) Lymphocytes # (Manual) Sodium Chloride Carbon Dioxide Creatinine Glucose POC Glucose 233 H 205 H AST ALT Albumin 05/18/16 05/18/16 05/18/16 11:00 11:37 15:42 WBC Hgb Hct MCV MCH MCHC RDW Plt Count Lymph % (Auto) [place] % (Auto) Lymph # Seg Neutrophils % Seg Neuts % (Manual) Lymphocytes % (Manual) Monocytes % (Manual) Lymphocytes # (Manual) Sodium 133 L Chloride 96.7 L Carbon Dioxide Creatinine 0.7 L Glucose 320 H POC Glucose 331 H 223 H AST 91 H ALT 141 H Albumin 3.6 L 05/19/16 05/19/16 05/19/16 01:20 05:11 05:11 WBC 3.9 L Hgb 9.9 L Hct 33.3 L MCV 81 L MCH 24 L MCHC 30 L RDW 20.5 H Plt Count 128 L Lymph % (Auto) [place] % (Auto) Lymph # Seg Neutrophils % Seg Neuts % (Manual) 72.0 H Lymphocytes % (Manual) 13.0 L Monocytes % (Manual) 10.0 H Lymphocytes # (Manual) 0.5 L Sodium 131 L Chloride 96.9 L Carbon Dioxide 21 L Creatinine 0.7 L Glucose 254 H POC Glucose 221 H AST ALT Albumin
[2016-05-19] MEDS: ROCEPHIN/NS 1 GM/50 ML 1 GM/50 ML BAG IV SCH (14:26)
[2016-05-19] MEDS: ZITHROMAX 500 MG in NACL 0.9% 250ML 250 ML IV SCH (14:26)
[2016-05-19] MEDS: MORPHINE IV PRN (17:43)
[2016-05-19] MEDS: SINGULAIR PO SCH (22:01)
[2016-05-19] MEDS: PROVENTIL IH PRN (22:41)
[2016-05-20] MEDS: MORPHINE IV PRN (00:07)
[2016-05-20] MEDS: DUONEB 0.5 MG-3 MG/3 ML SOLN IH SCH ×2 (02:22→07:42)
[2016-05-20] MEDS: NORCO 5/325 PO PRN (03:04)
[2016-05-20] MEDS: ULTRAM PO PRN (04:30)
[2016-05-20] MEDS: PROVENTIL IH PRN (05:15)
[2016-05-20] MEDS: NITRO-BID 2% TP SCH (05:18)
[2016-05-20] MEDS: TESSALON PERLES PO SCH (05:18)
[2016-05-20 06:58] LABS: Hematocrit 35.4 % (35.5-45.6); Hemoglobin 11.2 gm/dl (11.8-15.2); Mean Corpuscular HGB Conc 32 % (32-34); Mean Corpuscular Volume 80 fl (84-94); Platelet Count 142 K/mm3 (140-440); Red Blood Count 4.43 M/mm3 (3.65-5.03); White Blood Count 6.9 K/mm3 (4.5-11.0)
[2016-05-20 07:04] LABS: Mean Corpuscular Hemoglobin 25 pg (28-32); Red Cell Distribution Width 21.5 % (13.2-15.2)
[2016-05-20 07:06] LABS: Anion Gap 19 mmol/L; BUN/Creatinine Ratio 27.14; Blood Urea Nitrogen 19 mg/dL (9-20); Calcium 8.7 mg/dL (8.4-10.2); Carbon Dioxide 21 mmol/L (22-30); Chloride 97.3 mmol/L (98-107); Glucose 182 mg/dL (75-100); Potassium 4.4 mmol/L (3.6-5.0); Sodium 133 mmol/L (137-145)
[2016-05-20 07:35] VITALS: BP 142/94
[2016-05-20] MEDS: PULMICORT IH SCH (07:42)
[2016-05-20] MEDS: BROVANA NEBU IH SCH (07:44)
[2016-05-20 07:58] LABS: Anisocytosis 1+; Basophils % (Manual) 0 % (0.0-1.8); Blastocytes % (Manual) 0 %; Eosinophils % (Manual) 0 % (0.0-4.3)
[2016-05-20 07:59] LABS: Diff Status Complete; Hypochromasia 1+; Ovalocytes Few
[2016-05-20] MEDS: HEPARIN SUB-Q SCH (08:16)
--- NOTE | 2016-05-20 10:29 | Discharge Summary ---
Providers - Providers Date of Admission: 05/13/16 04:32 Date of discharge: 05/20/16 Attending physician: BETHANIE VALLE 05/14/16 12:31 Consult to Physician [CONS] Routine Consulting Provider: MERRITT MCLAUGHLIN Reason For Exam: SOB AND WHEEZING Place consult to:: DR MCLAUGHLIN Notified:: DR MCLAUGHLIN Was contact made?: Yes Time called:: 12:38 Primary care physician: CLINICAL PSYCHIATRIST Hospitalization Reason for admission: chest pain Condition: Stable Hospital course: 60 yo admitted from [place] with increased SOB, wheezing, dry cough, some fevers/chills, and L sided sharp chest pain. No sputum, hemoptysis, smoking. States he has GERD. States he has allergic rhinitis. States he has been "noncompliant" with his respiratory meds due to depression. Patient was undergo stress thallium but unfortunately cannot tolerate the procedure initially due to acute COPD exacerbation. Patient was treated with IV steroids , Pulmicort, Brovana and IV antibiotics. Patient was also seen by pulmonary consultation. Pulmonary clear the patient from a respiratory standpoint to undergo stress thallium. However, patient refused stress thallium at this time. Therefore, patient will be discharged home. Patient was advised the risk of refusing the stress test including . Patient have further follow- up as an outpatient and possible stress thallium. Patient will be given a referral to Dr. Asif office. Disposition: DISCHARGED TO HOME OR SELFCARE Time spent for discharge: 35 - Discharge Diagnoses (1) Bronchitis Status: Acute (2) Chest pain Status: Acute Qualifiers: Chest pain type: precordial chest pain Qualified Code(s): R07.2 - Precordial pain (3) Depression Status: Acute Qualifiers: Depression Type: major depressive disorder Major depression recurrence: recurrent Active/Remission status: currently active Major depression episode severity: unspecified Psychotic features: P Trimester: T Qualified Code(s): F33.9 - Major depressive disorder, recurrent, unspecified Core Measure Documentation - Palliative Care Palliative Care/ Comfort Measures: Not Applicable - Core Measures Any of the following diagnoses?: none Exam - Constitutional Vitals: Temp Pulse Resp BP Pulse Ox 97.6 F 61 16 142/94 96 05/20/16 07:33 05/20/16 08:18 05/20/16 08:00 05/20/16 07:33 05/20/16 07:33 General appearance: Present: no acute distress, well-nourished - EENT Eyes: Present: PERRL ENT: hearing intact, clear oral mucosa - Neck Neck: Present: supple, normal ROM - Respiratory Respiratory effort: normal Respiratory: bilateral: CTA - Cardiovascular Heart Sounds: Present: S1 & S2. Absent: rub, click - Extremities Extremities: pulses symmetrical, No edema Peripheral Pulses: within normal limits - Abdominal General gastrointestinal: Present: soft, non-tender, non-distended, normal bowel sounds Male genitourinary: Present: normal - Integumentary Integumentary: Present: clear, warm, dry - Musculoskeletal Musculoskeletal: gait normal, strength equal bilaterally - Psychiatric Psychiatric: appropriate mood/affect, intact judgment & insight - Neurologic Neurologic: CNII-XII intact, moves all extremities Plan Activity: no restrictions Weight Bearing Status: Full Weight Bearing Diet: regular Follow up with: PRIMARY CARE, [Primary Care Provider] - 3-5 Days Forms: AMA Form Prescriptions: Arformoterol Nebu [Brovana Nebu] 15 mcg IH Q12HRT #30 ml Aspirin [Aspirin TAB] 325 mg PO QDAY #30 tablet Benzonatate [Tessalon Perles] 200 mg PO Q8HR #30 capsule Budesonide [Pulmicort Respules] 0.5 mg IH Q12HRT #30 nebu Cefuroxime Axetil [Ceftin] 500 mg PO Q12H #14 tablet guaiFENesin [Robitussin] 200 mg PO Q4H PRN #30 oral.liqd PRN Reason: Cough HYDROcodone/APAP 5-325 [[place] 5-325 mg TAB] 2 each PO Q4H PRN #12 tablet PRN Reason: Pain, Moderate (4-6) Ipratropium/Albuterol Sulfate [Duoneb 0.5 mg-3 mg/3 ml Soln] 1 ampul IH Q6HRT # 30 ampul.neb Loratadine [Claritin] 10 mg PO QDAY #30 tablet Montelukast [Singulair] 10 mg PO QHS #30 tablet Nitroglycerin [Nitrostat] 0.4 mg SL Q5M PRN #30 tablet PRN Reason: Chest Pain Pantoprazole [Protonix TAB] 40 mg PO QDAY #30 tablet traMADol [Ultram 50 MG tab] 50 mg PO Q6H PRN #15 tablet PRN Reason: Pain, Moderate (4-6)
--- NOTE | 2016-05-20 12:47 | Query- Chest Pain ---
Quan Crook Reese Date: 05/20/16 [place]/CDS:____Ginitejas Shelton Phone#:____[phone] Exercise your independent professional judgment when responding to query. Questions asked do not imply a particular answer is desired or expected. We greatly appreciate your clarification on this issue. Clinical Documentation States: 60 year old male was admitted on 05/13/16 The discharge summary states " Reason for admission: chest pain. Discharge Diagnoses: Chest pain Status: Acute Qualifiers: Chest pain type: precordial chest pain Qualified Code(s): R07.2 - Precordial pain " Clinical Findings Show: The Echocardiography report states : Conclusions: Global left ventricular systolic function is normal. The estimated ejection fraction is 62-65% " Please document the etiology of Chest Pain: [ ] Myocardial Infarction [ ] Pneumonia [ ] Mediastinitis [ ] Costochondritis [ ] Pulmonary Embolism [ ] Coronary Artery Disease [ x] GERD [ ] Other: [ ] Comment/Explanation: Present on Admission: [x ] Yes (Y) [ ] Clinically undeterminable (W) [ ] No(N) Please document response in your Progress Notes and/or Discharge Summary and indicate if the condition was present on admission. RIGO
== END 2016-05-20 10:45 | disposition home or self-care (01) | DRG 189 ==
LOC: EDSEX → ED 20:41 → 4A 05-13 04:32
PROVIDERS: ADMIT Internal Medicine; ATTEND Hospitalist
DX: J96.01 Acute respiratory failure with hypoxia (principal); J44.0 Chronic obstructive pulmonary disease with (acute) lower respiratory infection; K21.9 Gastro-esophageal reflux disease without esophagitis; J44.1 Chronic obstructive pulmonary disease with (acute) exacerbation; J45.901 Unspecified asthma with (acute) exacerbation; J20.9 Acute bronchitis, unspecified; I25.10 Atherosclerotic heart disease of native coronary artery without angina pectoris; Z96.643 Presence of artificial hip joint, bilateral; I50.9 Heart failure, unspecified; F32.9 Major depressive disorder, single episode, unspecified
CPT/HCPCS: 36415; 71020; 80048; 80053; 82550; 82553; 82805; 82962; 83880; 84484; 85007; 85025; 85610; 85730; 93005; 93010; 93306; 94640; 94760; 96374; J0456; J0696; J1644; J1885; J2270; J2405; J2785; J2920; J7050